=== PATIENT | female | born 1975 | race Caucasian/White ===

== ENCOUNTER 2023-07-20 23:20 | Inpatient (IN) | payer MEDICAID, OTHER ==
[~2023-07-20] VITALS: Ht 170.2 cm; Wt 101.3 kg
[2023-07-21] VITALS (32 sets, daily range): BP systolic 56–128; BP diastolic 28–75; PULSE 89–111; RESP 14–32; TEMP 97.2–99.2
[2023-07-21 03:47] LABS: CHLORIDE 94 mEq/L (98-107); INDEX HEMOLYSI 1 (1-3); INDEX ICTERIC 1 (1-4); INDEX LIPEMIC 1 (1-3); POTASSIUM 3.9 mEq/L (3.5-5.1); SODIUM 126 mEq/L (136-145)
[2023-07-21 03:55] LABS: ALANINE AMINOTRANSFERASE 34 IU/L (13-61); ALBUMIN 2.8 g/dL (3.4-5.0); ASPARTATE AMINOTRANSFERASE 28 IU/L (15-37); BILIRUBIN TOTAL 0.5 mg/dL (0.1-1.0); CALCIUM 9.2 mg/dL (8.5-10.1); CARBON DIOXIDE 22 mEq/L (21-32); GLUCOSE 134 mg/dL (70-105); NT PRO B-TYPE NATRIURETIC PEP 333 pg/mL (5-125); PROTEIN TOTAL 8.6 g/dL (6.0-8.3); TROPONIN I HIGH SENSITIVITY 6 ng/L (<54); UREA NITROGEN BLOOD 49 mg/dL (7-21)
[2023-07-21 06:58] LABS: HCG SCREEN NEGATIVE
[2023-07-21 09:18] LABS: TROPONIN I HIGH SENSITIVITY 6 ng/L (<54)
[2023-07-21 09:50] LABS: HEMATOCRIT. 36.9 % (36.0-48.0); HEMOGLOBIN. 12.5 g/dL (12.0-16.0); MEAN CORPUSCULAR HEMOGLOBIN 32.1 pg (28.0-32.0); MEAN CORPUSCULAR VOLUME 94.4 fL (81.0-99.0); MEAN PLATELET VOLUME 7.6 fl (7.4-10.4); PLATELET 402 x1000/uL (130-400); RED BLOOD CELL COUNT 3.91 mill/uL (4.2-5.4); RED CELL DISTRIBUTION WIDTH 14.1 % (11.6-14.6); WHITE BLOOD COUNT 7.9 x1000/uL (4.5-11.0)
[2023-07-21 09:51] LABS: DIFFERENTIAL COMMENT 1
[2023-07-21] MEDS ORDERED: PIPERACILLIN/TAZOBACTAM 3.375GM/50ML PREMIX IV ONE (10:00)
[2023-07-21 10:26] LABS: PLATELET ESTIMATE NORMAL
[2023-07-21] MEDS: PIPERACILLIN/TAZ 3.375G PREMIX 50 ML IV SCH ×2 (10:31→11:03)
[2023-07-21] MEDS ORDERED: ONDANSETRON HCL 4MG/2ML INJ IV PRN (10:45)
[2023-07-21] MEDS ORDERED: ACETAMINOPHEN 650MG SUPP PR PRN (10:45)
[2023-07-21] MEDS ORDERED: NALOXONE HCL 0.4MG/ML VIAL IV PRN (11:00)
[2023-07-21] MEDS: PANTOPRAZOLE SODIUM 40 MG/VIAL IV SCH (11:00)
[2023-07-21] MEDS: ENOXAPARIN 40MG/0.4ML SYR SUBCUT SCH (11:00)
[2023-07-21] MEDS: SODIUM CHLORIDE 0.9% 1,000 ML IV SCH ×2 (11:20→18:15)
[2023-07-21] MEDS ORDERED: SKIN ADHESIVE 0.7 GM EA TOP ONE (13:12)
[2023-07-21] MEDS ORDERED: BUPIVACAINE HCL/PF 0.5% (5MG/ML) 10ML ONE (13:12)
[2023-07-21] MEDS ORDERED: ALBUTEROL 6.7GM HFA INHALER ONE (13:28)
[2023-07-21] MEDS ORDERED: FENTANYL CITRATE/PF 50MCG/ML 2ML VIAL ONE ×2 (13:34→14:13)
[2023-07-21] MEDS ORDERED: METOCLOPRAMIDE HCL 10MG/2ML VIAL ONE (13:34)
[2023-07-21] MEDS ORDERED: ROCURONIUM BROMIDE 10MG/ML VIAL 5ML IV ONE ×3 (13:34→15:14)
[2023-07-21] MEDS ORDERED: CEFAZOLIN SODIUM 1000MG/VIAL ONE (13:34)
[2023-07-21] MEDS ORDERED: DEXAMETHASONE 4MG/ML 1ML VIAL ONE (13:34)
[2023-07-21] MEDS ORDERED: PROPOFOL 200MG/20ML VIAL IV ONE (13:34)
[2023-07-21] MEDS ORDERED: MIDAZOLAM HCL 2 MG/2 ML VIAL ONE (13:35)
[2023-07-21] MEDS ORDERED: HYDROMORPHONE HCL/PF 2MG/ML CPJ ONE (14:16)
[2023-07-21] MEDS ORDERED: ALBUMIN HUMAN 12.5G/250ML (5%) IV ONE (14:46)
[2023-07-21] MEDS ORDERED: STERILE WATER FOR INJECTION 10ML VIAL ONE (15:18)
[2023-07-21] MEDS ORDERED: VECURONIUM BROMIDE 10 MG/VIAL IV ONE (15:18)
[2023-07-21] MEDS ORDERED: PIPERACILLIN/TAZOBACTAM 3.375 G in DEXTROSE 5% WATER 50 ML IV SCH (16:00)
[2023-07-21] MEDS: MORPHINE SULFATE 4 MG/ML CPJ (NOT FOR IM USE) IV PRN (17:29)
[2023-07-21 17:59] LABS: BG BASE EXCESS -5.7 mmol/L (-2.0-2.0); BG CARBOXYHEMOGLOBIN 0.5 % (0.5-1.5); BG FRACTION INSPIRED OXYGEN 100; BG HCO3 ACT 25.1 mmol/L (22.0-26.0); BG METHEMOGLOBIN 0.4 % (0.0-1.5); BG OXYHEMOGLOBIN 96.1 % (94.0-97.0); BG PCO2 75.4 mmHg (35.0-45.0); BG PH 7.141 (7.350-7.450); BG PO2 115.9 mmHg (75.0-100.0); BG SAMPLE SITE RIGHT RADIAL; BG TOTAL HEMOGLOBIN 15.3 g/dL (12.0-18.0); BG VENT MODE VENT - SIMV
[2023-07-21] MEDS: PROPOFOL 10MG/ML 100ML 100 ML IV PRN ×3 (19:30→22:48)
[2023-07-21 21:05] LABS: BG BASE EXCESS -5.7 mmol/L (-2.0-2.0); BG CARBOXYHEMOGLOBIN 0.2 % (0.5-1.5); BG DEOXYHEMOGLOBIN 4.9 % (0.0-5.0); BG FRACTION INSPIRED OXYGEN 100; BG HCO3 ACT 22.9 mmol/L (22.0-26.0); BG METHEMOGLOBIN 0.4 % (0.0-1.5); BG OXYGEN SATURATION 95.1 % (92.0-98.5); BG OXYHEMOGLOBIN 94.5 % (94.0-97.0); BG PCO2 60.2 mmHg (35.0-45.0); BG PH 7.198 (7.350-7.450); BG PO2 86.8 mmHg (75.0-100.0); BG SAMPLE SITE LEFT RADIAL; BG TOTAL HEMOGLOBIN 11.8 g/dL (12.0-18.0); BG VENT MODE VENT - AC
[2023-07-21] MEDS ORDERED: FENTANYL 2500MCG/250ML PMX 250 ML IV ONE (21:30)
[2023-07-21] MEDS: PIPERACILLIN/TAZOBACTAM 3.375 G in DEXTROSE 5% WATER 50 ML IV SCH (22:48)
[2023-07-21] MEDS: FENTANYL CITRATE 2,500 MCG in SODIUM CHLORIDE 0.9% 200 ML IV PRN (22:48)
[2023-07-21] MEDS: SODIUM BICARBONATE 100 MEQ in SODIUM CHLORIDE 0.45% 1,000 ML IV SCH (22:48)
[2023-07-22] VITALS (102 sets, daily range): BP systolic 81–167; BP diastolic 37–137; PULSE 78–110; RESP 12–67; TEMP 98.7–99
[2023-07-22] MEDS: PROPOFOL 10MG/ML 100ML 100 ML IV PRN ×12 (01:06→23:36)
[2023-07-22 05:16] LABS: BASOPHILS % 0.3 % (0.0-2.0); DIFFERENTIAL COMMENT 0; EOSINOPHILS % 0.4 % (0.0-5.0); HEMATOCRIT. 28.7 % (36.0-48.0); HEMOGLOBIN. 10.1 g/dL (12.0-16.0); LYMPHOCYTES % 7.9 % (20.0-50.0); MEAN CORPUSCULAR HGB CONC 35.3 g/dL (31.0-37.0); MEAN CORPUSCULAR VOLUME 93.6 fL (81.0-99.0); MEAN PLATELET VOLUME 7.1 fl (7.4-10.4); MONOCYTES % 7.2 % (2.0-8.0); NEUTROPHILS % 84.2 % (40.0-76.0); PLATELET 385 x1000/uL (130-400); RED BLOOD CELL COUNT 3.06 mill/uL (4.2-5.4); RED CELL DISTRIBUTION WIDTH 14.2 % (11.6-14.6); WHITE BLOOD COUNT 9.9 x1000/uL (4.5-11.0)
[2023-07-22 05:28] LABS: CHLORIDE 101 mEq/L (98-107); INDEX HEMOLYSI 1 (1-3); INDEX ICTERIC 1 (1-4); INDEX LIPEMIC 1 (1-3); POTASSIUM 3.9 mEq/L (3.5-5.1); SODIUM 132 mEq/L (136-145)
[2023-07-22 05:34] LABS: ALANINE AMINOTRANSFERASE 24 IU/L (13-61); ALBUMIN 2.1 g/dL (3.4-5.0); ASPARTATE AMINOTRANSFERASE 20 IU/L (15-37); BILIRUBIN TOTAL 0.6 mg/dL (0.1-1.0); CALCIUM 6.9 mg/dL (8.5-10.1); CARBON DIOXIDE 23 mEq/L (21-32); GLUCOSE 157 mg/dL (70-105); PHOSPHORUS 5.9 mg/dL (2.5-4.9); PROTEIN TOTAL 6.2 g/dL (6.0-8.3); TRIGLYCERIDE 424 mg/dL (0-150); UREA NITROGEN BLOOD 59 mg/dL (7-21)
[2023-07-22] MEDS: PIPERACILLIN/TAZOBACTAM 3.375 G in DEXTROSE 5% WATER 50 ML IV SCH ×3 (05:44→23:36)
[2023-07-22] MEDS: NOREPINEPHRINE 8MG/250ML PMX 250 ML IV PRN ×3 (07:47→20:21)
[2023-07-22] MEDS: IPRATROPIUM/ALBUTEROL 0.5-3(2.5)MG/3ML NEB HHN SCH ×2 (08:25→13:52)
[2023-07-22] MEDS: PANTOPRAZOLE SODIUM 40 MG/VIAL IV SCH (08:56)
[2023-07-22] MEDS: ENOXAPARIN 40MG/0.4ML SYR SUBCUT SCH (08:56)
[2023-07-22] MEDS: LORAZEPAM 2MG/ML CPJ IV PRN ×3 (08:56→21:16)
[2023-07-22] MEDS ORDERED: LIDOCAINE HCL 1% 10 MG/ML 10ML VIAL ONE (09:54)
[2023-07-22 10:11] LABS: BG BASE EXCESS -2.3 mmol/L (-2.0-2.0); BG CARBOXYHEMOGLOBIN 0.3 % (0.5-1.5); BG DEOXYHEMOGLOBIN 1.5 % (0.0-5.0); BG FRACTION INSPIRED OXYGEN 100; BG HCO3 ACT 23.4 mmol/L (22.0-26.0); BG METHEMOGLOBIN 0.5 % (0.0-1.5); BG OXYGEN SATURATION 98.5 % (92.0-98.5); BG OXYHEMOGLOBIN 97.7 % (94.0-97.0); BG PCO2 43.9 mmHg (35.0-45.0); BG PH 7.345 (7.350-7.450); BG PO2 147.8 mmHg (75.0-100.0); BG SAMPLE SITE RIGHT RADIAL; BG TOTAL HEMOGLOBIN 10.9 g/dL (12.0-18.0); BG VENT MODE VENT - AC
[2023-07-22] MEDS: SODIUM BICARBONATE 100 MEQ in SODIUM CHLORIDE 0.45% 1,000 ML IV SCH (11:51)
[2023-07-22] MEDS: FENTANYL CITRATE 2,500 MCG in SODIUM CHLORIDE 0.9% 200 ML IV PRN ×2 (11:53→21:19)
[2023-07-22 13:49] LABS: BG BASE EXCESS -2.7 mmol/L (-2.0-2.0); BG CARBOXYHEMOGLOBIN 0.3 % (0.5-1.5); BG DEOXYHEMOGLOBIN 6.7 % (0.0-5.0); BG FRACTION INSPIRED OXYGEN 90; BG HCO3 ACT 23.9 mmol/L (22.0-26.0); BG METHEMOGLOBIN 0.4 % (0.0-1.5); BG OXYGEN SATURATION 93.3 % (92.0-98.5); BG OXYHEMOGLOBIN 92.6 % (94.0-97.0); BG PCO2 49.3 mmHg (35.0-45.0); BG PH 7.304 (7.350-7.450); BG PO2 73.3 mmHg (75.0-100.0); BG SAMPLE SITE RIGHT RADIAL; BG TOTAL HEMOGLOBIN 11.6 g/dL (12.0-18.0); BG VENT MODE VENT - AC
[2023-07-22 16:40] LABS: CLARITY URINE CLOUDY (CLEAR); COLOR URINE DARK YELLOW (YELLOW); GLUCOSE URINE NEGATIVE (NEGATIVE); KETONES URINE NEGATIVE (NEGATIVE); LEUKOCYTE ESTERASE URINE TRACE (NEGATIVE); NITRITE URINE NEGATIVE (NEGATIVE); OCCULT BLOOD URINE NEGATIVE (NEGATIVE); PROTEIN URINE TRACE (NEGATIVE); SPECIFIC GRAVITY URINE 1.024 (1.005-1.030)
[2023-07-22 16:44] LABS: SQUAMOUS EPITHELIAL CELL URINE 1+ /lpf (RARE/1+); YEAST URINE NONE SEEN
[2023-07-22 16:57] LABS: *AMPHETAMINES SCREEN URINE NEGATIVE (NEGATIVE); *BARBITURATES SCREEN URINE NEGATIVE (NEGATIVE); *BENZODIAZEPINES SCREEN URINE PRESUMTIVE POSITIVE (NEGATIVE); *COCAINE SCREEN URINE NEGATIVE (NEGATIVE); CANNABINOID URINE SCREEN NEGATIVE (NEGATIVE); ECSTASY MDMA SCREEN URINE CONF.TEST INDICATED (NEGATIVE); METHADONE URINE SCREEN NEGATIVE (NEGATIVE); OPIATES URINE SCREEN PRESUMTIVE POSITIVE (NEGATIVE); PHENCYCLIDINE URINE SCREEN NEGATIVE (NEGATIVE)
[2023-07-22 17:23] LABS: RBC URINE 0-2 /hpf (0-2)
[2023-07-22 17:24] LABS: BACTERIA URINE 1+
[2023-07-23] VITALS (53 sets, daily range): BP systolic 84–157; BP diastolic 27–76; PULSE 75–102; RESP 20–30; TEMP 98.9–99.1
[2023-07-23] MEDS: SODIUM CHLORIDE 0.9% 1,000 ML IV SCH ×2 (00:08→12:51)
[2023-07-23] MEDS: NOREPINEPHRINE 8MG/250ML PMX 250 ML IV PRN (00:47)
[2023-07-23] MEDS: LORAZEPAM 2MG/ML CPJ IV PRN ×3 (01:19→17:49)
[2023-07-23] MEDS: MORPHINE SULFATE 4 MG/ML CPJ (NOT FOR IM USE) IV PRN ×2 (01:19→08:52)
[2023-07-23] MEDS: PROPOFOL 10MG/ML 100ML 100 ML IV PRN ×10 (02:08→23:52)
[2023-07-23 04:53] LABS: HEMATOCRIT. 29.4 % (36.0-48.0); HEMOGLOBIN. 9.9 g/dL (12.0-16.0); MEAN CORPUSCULAR HEMOGLOBIN 31.5 pg (28.0-32.0); MEAN CORPUSCULAR HGB CONC 33.5 g/dL (31.0-37.0); MEAN CORPUSCULAR VOLUME 93.9 fL (81.0-99.0); MEAN PLATELET VOLUME 7.2 fl (7.4-10.4); PLATELET 480 x1000/uL (130-400); RED BLOOD CELL COUNT 3.13 mill/uL (4.2-5.4); RED CELL DISTRIBUTION WIDTH 14.4 % (11.6-14.6); WHITE BLOOD COUNT 17.2 x1000/uL (4.5-11.0)
[2023-07-23 05:06] LABS: POTASSIUM 3.4 mEq/L (3.5-5.1)
[2023-07-23 05:16] LABS: INDEX HEMOLYSI 2 (1-3)
[2023-07-23 05:33] LABS: FERRITIN 393 ng/mL (10-291)
[2023-07-23 05:35] LABS: ALBUMIN 1.8 g/dL (3.4-5.0); BILIRUBIN DIRECT 0.6 mg/dL (0.0-0.2); BILIRUBIN TOTAL 0.8 mg/dL (0.1-1.0); CALCIUM 6.8 mg/dL (8.5-10.1); PROTEIN TOTAL 6.4 g/dL (6.0-8.3)
[2023-07-23 05:43] LABS: HEPATITIS B SURFACE ANTIGEN NEGATIVE
[2023-07-23 05:59] LABS: FOLIC ACID (FOLATE) SERUM > 20.00 ng/mL (>5.38); VITAMIN B12 SERUM > 2000.0 pg/mL (211-911)
[2023-07-23] MEDS: PIPERACILLIN/TAZOBACTAM 3.375 G in DEXTROSE 5% WATER 50 ML IV SCH ×3 (06:22→20:53)
[2023-07-23 06:33] LABS: INR 1.2; PROTHROMBIN TIME 12.5 sec (9.6-11.0)
[2023-07-23 06:56] LABS: DIFFERENTIAL COMMENT 1
[2023-07-23] MEDS ORDERED: NOREPINEPHRINE 8 MG in DEXT 5% WATER 242 ML IV PRN (08:15)
[2023-07-23] MEDS ORDERED: NOREPINEPHRINE 8MG/250ML PMX 250 ML IV PRN (08:15)
[2023-07-23] MEDS: IPRATROPIUM/ALBUTEROL 0.5-3(2.5)MG/3ML NEB HHN SCH ×3 (08:16→20:31)
[2023-07-23] MEDS: NOREPINEPHRINE 32 MG in DEXT 5% WATER 218 ML IV PRN (08:40)
[2023-07-23] MEDS: PANTOPRAZOLE SODIUM 40 MG/VIAL IV SCH (08:50)
[2023-07-23] MEDS: ENOXAPARIN 40MG/0.4ML SYR SUBCUT SCH ×2 (08:51→20:54)
[2023-07-23 09:50] LABS: BG BASE EXCESS 1.5 mmol/L (-2.0-2.0); BG CARBOXYHEMOGLOBIN 0.3 % (0.5-1.5); BG DEOXYHEMOGLOBIN 5.8 % (0.0-5.0); BG FRACTION INSPIRED OXYGEN 70; BG HCO3 ACT 27.5 mmol/L (22.0-26.0); BG METHEMOGLOBIN 0.6 % (0.0-1.5); BG OXYGEN SATURATION 94.1 % (92.0-98.5); BG OXYHEMOGLOBIN 93.3 % (94.0-97.0); BG PCO2 49.3 mmHg (35.0-45.0); BG PH 7.364 (7.350-7.450); BG PO2 74.8 mmHg (75.0-100.0); BG SAMPLE SITE RIGHT RADIAL; BG TOTAL HEMOGLOBIN 11.6 g/dL (12.0-18.0); BG TOTAL RESPIRATORY RATE 20 b/min; BG VENT MODE VENT - AC
[2023-07-23 14:16] LABS: HEPATITIS B CORE AB IGM NEGATIVE
[2023-07-23 14:18] LABS: HEPATITIS A AB IGM NEGATIVE (NEGATIVE)
[2023-07-23 14:26] LABS: PLATELET ESTIMATE INCREASED
[2023-07-23] MEDS ORDERED: POLY17PO43 PO (14:46)
[2023-07-23] MEDS ORDERED: OMEP20CA14 PO (15:02)
[2023-07-23] MEDS ORDERED: NALT50TA5 MT (15:02)
[2023-07-23] MEDS ORDERED: CRES10 MT (15:02)
[2023-07-23] MEDS ORDERED: BUPR-315 MT (15:02)
[2023-07-23] MEDS ORDERED: SEMA0.5P (15:02)
[2023-07-23] MEDS ORDERED: CLON0.5T23 MT (15:02)
[2023-07-23] MEDS ORDERED: AMLO5TAB88 PO (15:02)
[2023-07-23] MEDS ORDERED: SEMA0.253 (15:02)
[2023-07-23] MEDS ORDERED: ESTR1PAT74 TP (15:02)
[2023-07-23] MEDS ORDERED: QUET50TA23 MT (15:02)
[2023-07-23] MEDS ORDERED: PARO40TA75 MT (15:02)
[2023-07-23] MEDS ORDERED: QUET100T34 MT (15:02)
[2023-07-23] MEDS ORDERED: VALS80TA30 MT (15:02)
[2023-07-23] MEDS ORDERED: NICO-645 TP (15:02)
[2023-07-23] MEDS: FENTANYL CITRATE 2,500 MCG in SODIUM CHLORIDE 0.9% 200 ML IV PRN ×2 (15:34→22:13)
[2023-07-24] VITALS (89 sets, daily range): BP systolic 73–176; BP diastolic 27–140; PULSE 65–113; RESP 7–26; TEMP 99.2–100.5
[2023-07-24] MEDS: IPRATROPIUM/ALBUTEROL 0.5-3(2.5)MG/3ML NEB HHN SCH ×4 (01:38→20:40)
[2023-07-24] MEDS: PROPOFOL 10MG/ML 100ML 100 ML IV PRN ×7 (02:31→21:11)
[2023-07-24] MEDS: PIPERACILLIN/TAZOBACTAM 3.375 G in DEXTROSE 5% WATER 50 ML IV SCH ×3 (05:28→21:10)
[2023-07-24] MEDS: SODIUM CHLORIDE 0.9% 1,000 ML IV SCH ×3 (05:28→18:25)
[2023-07-24 06:01] LABS: HEMATOCRIT. 25.8 % (36.0-48.0); HEMOGLOBIN. 8.7 g/dL (12.0-16.0); MEAN CORPUSCULAR HEMOGLOBIN 32.4 pg (28.0-32.0); MEAN CORPUSCULAR HGB CONC 33.8 g/dL (31.0-37.0); MEAN PLATELET VOLUME 7.2 fl (7.4-10.4); PLATELET 415 x1000/uL (130-400); RED BLOOD CELL COUNT 2.69 mill/uL (4.2-5.4); RED CELL DISTRIBUTION WIDTH 14.9 % (11.6-14.6); WHITE BLOOD COUNT 17.4 x1000/uL (4.5-11.0)
[2023-07-24 06:08] LABS: POTASSIUM 3.8 mEq/L (3.5-5.1)
[2023-07-24 06:14] LABS: CALCIUM 6.6 mg/dL (8.5-10.1); CREATININE 1.3 mg/dL (0.6-1.3)
[2023-07-24 06:54] LABS: DIFFERENTIAL COMMENT 1
[2023-07-24 08:04] LABS: BG BASE EXCESS -1.6 mmol/L (-2.0-2.0); BG CARBOXYHEMOGLOBIN 0.3 % (0.5-1.5); BG DEOXYHEMOGLOBIN 1.6 % (0.0-5.0); BG HCO3 ACT 24.1 mmol/L (22.0-26.0); BG METHEMOGLOBIN 0.3 % (0.0-1.5); BG OXYGEN SATURATION 98.4 % (92.0-98.5); BG OXYHEMOGLOBIN 97.8 % (94.0-97.0); BG PCO2 45.4 mmHg (35.0-45.0); BG PH 7.343 (7.350-7.450); BG PO2 143.1 mmHg (75.0-100.0); BG SAMPLE SITE RH; BG TOTAL HEMOGLOBIN 8.7 g/dL (12.0-18.0); BG VENT MODE VENT - AC
[2023-07-24] MEDS: PANTOPRAZOLE SODIUM 40 MG/VIAL IV SCH (08:47)
[2023-07-24] MEDS: NOREPINEPHRINE 32 MG in DEXT 5% WATER 218 ML IV PRN (08:49)
[2023-07-24] MEDS: MORPHINE SULFATE 4 MG/ML CPJ (NOT FOR IM USE) IV PRN (08:50)
[2023-07-24] MEDS: ENOXAPARIN 40MG/0.4ML SYR SUBCUT SCH ×2 (08:52→20:26)
[2023-07-24] MEDS: FENTANYL CITRATE 2,500 MCG in SODIUM CHLORIDE 0.9% 200 ML IV PRN (09:08)
[2023-07-24 10:11] LABS: PLATELET ESTIMATE SLIGHTLY INCREASED
[2023-07-24 10:12] LABS: TEAR DROP CELLS 1+
[2023-07-24] MEDS: BUDESONIDE 0.5MG/2ML NEB HHN SCH ×2 (13:50→20:40)
[2023-07-24 20:02] LABS: PREALBUMIN 9.3 mg/dL (20.0-40.0)
[2023-07-25] VITALS (112 sets, daily range): BP systolic 73–177; BP diastolic 27–146; PULSE 60–122; RESP 5–116; TEMP 98–99.8
[2023-07-25] MEDS: PROPOFOL 10MG/ML 100ML 100 ML IV PRN ×4 (00:29→08:56)
[2023-07-25] MEDS: IPRATROPIUM/ALBUTEROL 0.5-3(2.5)MG/3ML NEB HHN SCH ×7 (00:31→21:02)
[2023-07-25] MEDS: SODIUM CHLORIDE 0.9% 1,000 ML IV SCH (04:29)
[2023-07-25 05:01] LABS: HEMOGLOBIN. 8.3 g/dL (12.0-16.0); MEAN CORPUSCULAR HEMOGLOBIN 30.8 pg (28.0-32.0); MEAN CORPUSCULAR HGB CONC 32.1 g/dL (31.0-37.0); MEAN CORPUSCULAR VOLUME 95.7 fL (81.0-99.0); MEAN PLATELET VOLUME 7.1 fl (7.4-10.4); PLATELET 365 x1000/uL (130-400); RED BLOOD CELL COUNT 2.71 mill/uL (4.2-5.4); WHITE BLOOD COUNT 14.7 x1000/uL (4.5-11.0)
[2023-07-25 05:03] LABS: CHLORIDE 113 mEq/L (98-107); INDEX HEMOLYSI 2 (1-3); INDEX ICTERIC 1 (1-4); INDEX LIPEMIC 1 (1-3); POTASSIUM 3.8 mEq/L (3.5-5.1); SODIUM 143 mEq/L (136-145)
[2023-07-25 05:08] LABS: DIFFERENTIAL COMMENT 1
[2023-07-25 05:14] LABS: CALCIUM 7.2 mg/dL (8.5-10.1); CARBON DIOXIDE 25 mEq/L (21-32); CREATININE 0.9 mg/dL (0.6-1.3); GLUCOSE 105 mg/dL (70-105); TRIGLYCERIDE 560 mg/dL (0-150); UREA NITROGEN BLOOD 34 mg/dL (7-21)
[2023-07-25 05:47] LABS: PLATELET ESTIMATE NORMAL
[2023-07-25] MEDS: PIPERACILLIN/TAZOBACTAM 3.375 G in DEXTROSE 5% WATER 50 ML IV SCH ×3 (06:01→22:00)
[2023-07-25] MEDS: FENTANYL CITRATE 2,500 MCG in SODIUM CHLORIDE 0.9% 200 ML IV PRN ×2 (06:02→18:48)
[2023-07-25] MEDS: BUDESONIDE 0.5MG/2ML NEB HHN SCH ×2 (08:27→21:02)
[2023-07-25] MEDS: PANTOPRAZOLE SODIUM 40 MG/VIAL IV SCH (08:34)
[2023-07-25] MEDS: ENOXAPARIN 40MG/0.4ML SYR SUBCUT SCH ×2 (08:34→21:01)
[2023-07-25 09:50] LABS: BG BASE EXCESS -1.1 mmol/L (-2.0-2.0); BG CARBOXYHEMOGLOBIN 0.3 % (0.5-1.5); BG DEOXYHEMOGLOBIN 6.4 % (0.0-5.0); BG FRACTION INSPIRED OXYGEN 60; BG HCO3 ACT 26.8 mmol/L (22.0-26.0); BG METHEMOGLOBIN 0.1 % (0.0-1.5); BG OXYGEN SATURATION 93.6 % (92.0-98.5); BG OXYHEMOGLOBIN 93.2 % (94.0-97.0); BG PCO2 63.3 mmHg (35.0-45.0); BG PH 7.244 (7.350-7.450); BG PO2 78.1 mmHg (75.0-100.0); BG SAMPLE SITE RIGHT RADIAL; BG TOTAL HEMOGLOBIN 9.1 g/dL (12.0-18.0); BG VENT MODE VENT - AC
[2023-07-25] MEDS ORDERED: METHYLPREDNISOLONE SOD SUCC 40MG VIAL IV SCH (10:45)
[2023-07-25] MEDS: MIDAZOLAM HCL 100 MG in SODIUM CHLORIDE 0.9% 80 ML IV PRN ×2 (12:08→18:48)
[2023-07-25] MEDS: METHYLPREDNISOLONE SOD SUCC 40MG VIAL IV SCH ×2 (12:08→21:00)
[2023-07-25] MEDS ORDERED: HALOPERIDOL LACTATE 5MG/ML VIAL IM NR (12:30)
[2023-07-25 12:41] LABS: PREALBUMIN 7.4 mg/dL (20.0-40.0)
[2023-07-25] MEDS ORDERED: SODIUM CHLORIDE 0.9% 1,000 ML IV SCH ×2 (13:00→21:00)
[2023-07-25] MEDS: TOTAL PARENTERAL NUTRITION 1,680 ML IV SCH (21:06)
[2023-07-26] VITALS (110 sets, daily range): BP systolic 73–218; BP diastolic 24–149; PULSE 54–131; RESP 12–35; TEMP 97.7–100
[2023-07-26] MEDS: IPRATROPIUM/ALBUTEROL 0.5-3(2.5)MG/3ML NEB HHN SCH ×6 (00:37→20:52)
[2023-07-26] MEDS: FENTANYL CITRATE 2,500 MCG in SODIUM CHLORIDE 0.9% 200 ML IV PRN ×3 (02:38→19:40)
[2023-07-26] MEDS: MIDAZOLAM HCL 100 MG in SODIUM CHLORIDE 0.9% 80 ML IV PRN ×3 (03:52→20:28)
[2023-07-26] MEDS: LORAZEPAM 2MG/ML CPJ IV PRN ×3 (03:53→23:35)
[2023-07-26] MEDS: METHYLPREDNISOLONE SOD SUCC 40MG VIAL IV SCH ×2 (04:00→11:53)
[2023-07-26] MEDS: MORPHINE SULFATE 4 MG/ML CPJ (NOT FOR IM USE) IV PRN (04:04)
[2023-07-26 04:57] LABS: HEMATOCRIT. 25.9 % (36.0-48.0); HEMOGLOBIN. 8.3 g/dL (12.0-16.0); MEAN CORPUSCULAR HEMOGLOBIN 31.3 pg (28.0-32.0); MEAN CORPUSCULAR HGB CONC 32.2 g/dL (31.0-37.0); MEAN CORPUSCULAR VOLUME 97.4 fL (81.0-99.0); MEAN PLATELET VOLUME 7.4 fl (7.4-10.4); PLATELET 395 x1000/uL (130-400); RED BLOOD CELL COUNT 2.65 mill/uL (4.2-5.4); WHITE BLOOD COUNT 16.5 x1000/uL (4.5-11.0)
[2023-07-26 05:09] LABS: CHLORIDE 116 mEq/L (98-107); INDEX HEMOLYSI 1 (1-3); INDEX ICTERIC 1 (1-4); INDEX LIPEMIC 1 (1-3); INR 1.1; PARTIAL THROMBOPLASTIN TIME 29.9 sec (23.4-31.0); POTASSIUM 4.7 mEq/L (3.5-5.1); SODIUM 144 mEq/L (136-145)
[2023-07-26 05:15] LABS: ALANINE AMINOTRANSFERASE 20 IU/L (13-61); ALBUMIN 1.8 g/dL (3.4-5.0); ASPARTATE AMINOTRANSFERASE 21 IU/L (15-37); BILIRUBIN TOTAL 0.7 mg/dL (0.1-1.0); CALCIUM 7.7 mg/dL (8.5-10.1); CARBON DIOXIDE 28 mEq/L (21-32); CHOLESTEROL 120 mg/dL (<200); CREATININE 0.6 mg/dL (0.6-1.3); GLUCOSE 201 mg/dL (70-105); PROTEIN TOTAL 7.4 g/dL (6.0-8.3); TRIGLYCERIDE 371 mg/dL (0-150); UREA NITROGEN BLOOD 24 mg/dL (7-21)
[2023-07-26 05:20] LABS: DIFFERENTIAL COMMENT 1
[2023-07-26] MEDS: BLOOD SUGAR DIAGNOSTIC STRIP TEST SCH ×5 (06:00→23:32)
[2023-07-26] MEDS: PIPERACILLIN/TAZOBACTAM 3.375 G in DEXTROSE 5% WATER 50 ML IV SCH ×2 (06:25→14:14)
[2023-07-26 08:04] LABS: BG BASE EXCESS 2.1 mmol/L (-2.0-2.0); BG CARBOXYHEMOGLOBIN 0.3 % (0.5-1.5); BG DEOXYHEMOGLOBIN 1.4 % (0.0-5.0); BG HCO3 ACT 26.9 mmol/L (22.0-26.0); BG METHEMOGLOBIN 0.1 % (0.0-1.5); BG OXYGEN SATURATION 98.6 % (92.0-98.5); BG OXYHEMOGLOBIN 98.2 % (94.0-97.0); BG PCO2 42.6 mmHg (35.0-45.0); BG PH 7.418 (7.350-7.450); BG PO2 139.7 mmHg (75.0-100.0); BG SAMPLE SITE RIGHT RADIAL; BG TOTAL HEMOGLOBIN 9.9 g/dL (12.0-18.0); BG VENT MODE VENT - AC
[2023-07-26] MEDS: BUDESONIDE 0.5MG/2ML NEB HHN SCH ×2 (08:49→20:52)
[2023-07-26] MEDS: PANTOPRAZOLE SODIUM 40 MG/VIAL IV SCH (08:54)
[2023-07-26] MEDS: ENOXAPARIN 40MG/0.4ML SYR SUBCUT SCH ×2 (08:55→20:27)
[2023-07-26] MEDS ORDERED: SODIUM CHLORIDE 0.45% 1,000 ML IV SCH (11:15)
[2023-07-26] MEDS ORDERED: DEXTROSE 50% WATER 50ML SYRINGE IV PRN (11:30)
[2023-07-26] MEDS: INSULIN LISPRO 100 UNITS/ML SUBCUT SCH ×3 (11:55→23:38)
[2023-07-26 12:28] LABS: PREALBUMIN 8.9 mg/dL (20.0-40.0)
[2023-07-26 13:54] LABS: PLATELET ESTIMATE NORMAL
[2023-07-26] MEDS: HALOPERIDOL LACTATE 5MG/ML VIAL IM PRN ×2 (14:14→22:47)
[2023-07-26] MEDS: ACETYLCYSTEINE 100MG/ML 10% VIAL 4ML INH SCH ×2 (16:25→20:52)
[2023-07-26] MEDS ORDERED: METHYLPREDNISOLONE SOD SUCC 40MG VIAL IV SCH (20:00)
[2023-07-26] MEDS ORDERED: METHYLPREDNISOLONE SOD SUCC 40MG/ML (ACT-O-VIAL) IV SCH (20:20)
[2023-07-26] MEDS: FAT EMULSIONS 250 ML IV SCH (20:26)
[2023-07-26] MEDS: TOTAL PARENTERAL NUTRITION 1,680 ML IV SCH (20:30)
[2023-07-26] MEDS: METHYLPREDNISOLONE SOD SUCC 40MG/ML (ACT-O-VIAL) IV SCH (20:33)
[2023-07-27] VITALS (98 sets, daily range): BP systolic 60–168; BP diastolic 23–102; PULSE 48–131; RESP 6–41; TEMP 97–99.2
[2023-07-27] MEDS: IPRATROPIUM/ALBUTEROL 0.5-3(2.5)MG/3ML NEB HHN SCH (00:35)
[2023-07-27] MEDS ORDERED: FENTANYL 2500MCG/250ML PMX 250 ML IV ONE (02:45)
[2023-07-27] MEDS: METHYLPREDNISOLONE SOD SUCC 40MG/ML (ACT-O-VIAL) IV SCH ×2 (03:33→11:46)
[2023-07-27] MEDS: IPRATROPIUM/ALBUTEROL 0.5-3(2.5)MG/3ML NEB HHN PRN ×3 (04:16→16:00)
[2023-07-27] MEDS: LORAZEPAM 2MG/ML CPJ IV PRN (04:56)
[2023-07-27] MEDS: FENTANYL CITRATE 2,500 MCG in SODIUM CHLORIDE 0.9% 200 ML IV PRN ×2 (05:16→15:08)
[2023-07-27 05:54] LABS: HEMATOCRIT. 24.3 % (36.0-48.0); HEMOGLOBIN. 7.8 g/dL (12.0-16.0); MEAN CORPUSCULAR HEMOGLOBIN 31.1 pg (28.0-32.0); MEAN CORPUSCULAR HGB CONC 31.9 g/dL (31.0-37.0); MEAN CORPUSCULAR VOLUME 97.6 fL (81.0-99.0); MEAN PLATELET VOLUME 7.6 fl (7.4-10.4); PLATELET 342 x1000/uL (130-400); RED BLOOD CELL COUNT 2.49 mill/uL (4.2-5.4); RED CELL DISTRIBUTION WIDTH 14.9 % (11.6-14.6); WHITE BLOOD COUNT 14.8 x1000/uL (4.5-11.0)
[2023-07-27 05:56] LABS: CHLORIDE 114 mEq/L (98-107); INDEX HEMOLYSI 1 (1-3); INDEX ICTERIC 1 (1-4); INDEX LIPEMIC 1 (1-3); POTASSIUM 4.5 mEq/L (3.5-5.1); SODIUM 144 mEq/L (136-145)
[2023-07-27] MEDS: BLOOD SUGAR DIAGNOSTIC STRIP TEST SCH ×4 (06:00→23:45)
[2023-07-27 06:15] LABS: CALCIUM 8.4 mg/dL (8.5-10.1); CARBON DIOXIDE 27 mEq/L (21-32); CREATININE 0.6 mg/dL (0.6-1.3); GLUCOSE 202 mg/dL (70-105); PHOSPHORUS 2.5 mg/dL (2.5-4.9); UREA NITROGEN BLOOD 28 mg/dL (7-21)
[2023-07-27 06:18] LABS: DIFFERENTIAL COMMENT 1
[2023-07-27] MEDS: INSULIN LISPRO 100 UNITS/ML SUBCUT SCH ×4 (06:45→23:50)
[2023-07-27] MEDS: HALOPERIDOL LACTATE 5MG/ML VIAL IM PRN ×3 (08:11→23:25)
[2023-07-27] MEDS: ACETYLCYSTEINE 100MG/ML 10% VIAL 4ML INH SCH ×2 (08:46→15:59)
[2023-07-27] MEDS: BUDESONIDE 0.5MG/2ML NEB HHN SCH (08:46)
[2023-07-27 08:48] LABS: BG CARBOXYHEMOGLOBIN 0.3 % (0.5-1.5); BG DEOXYHEMOGLOBIN 1.8 % (0.0-5.0); BG FRACTION INSPIRED OXYGEN 50; BG HCO3 ACT 26.7 mmol/L (22.0-26.0); BG OXYGEN SATURATION 98.2 % (92.0-98.5); BG OXYHEMOGLOBIN 97.9 % (94.0-97.0); BG PCO2 42.3 mmHg (35.0-45.0); BG PH 7.418 (7.350-7.450); BG PO2 122.2 mmHg (75.0-100.0); BG SAMPLE SITE RIGHT RADIAL; BG TOTAL HEMOGLOBIN 8.4 g/dL (12.0-18.0); BG VENT MODE VENT - AC
[2023-07-27] MEDS: PANTOPRAZOLE SODIUM 40 MG/VIAL IV SCH (08:59)
[2023-07-27] MEDS: ENOXAPARIN 40MG/0.4ML SYR SUBCUT SCH ×2 (09:00→21:11)
[2023-07-27] MEDS: SODIUM CHLORIDE 0.45% 1,000 ML IV SCH (09:03)
[2023-07-27] MEDS: MIDAZOLAM HCL 100 MG in SODIUM CHLORIDE 0.9% 80 ML IV PRN (10:16)
[2023-07-27] MEDS: LORAZEPAM 2MG/ML CPJ IM PRN ×2 (11:39→17:26)
[2023-07-27 12:46] LABS: PLATELET ESTIMATE NORMAL
[2023-07-27 12:48] LABS: ANISOCYTOSIS 1+
[2023-07-27] MEDS: PIPERACILLIN/TAZOBACTAM 3.375 G in DEXTROSE 5% WATER 50 ML IV SCH ×2 (15:04→21:30)
[2023-07-27] MEDS: TOTAL PARENTERAL NUTRITION 1,680 ML IV SCH (21:14)
[2023-07-28] VITALS (103 sets, daily range): BP systolic 121–183; BP diastolic 61–122; PULSE 49–103; RESP 21–37; TEMP 98–102.7
[2023-07-28] MEDS: IPRATROPIUM/ALBUTEROL 0.5-3(2.5)MG/3ML NEB HHN PRN ×3 (00:39→15:40)
[2023-07-28] MEDS: ACETYLCYSTEINE 100MG/ML 10% VIAL 4ML INH SCH ×3 (00:39→15:40)
[2023-07-28] MEDS: MIDAZOLAM HCL 100 MG in SODIUM CHLORIDE 0.9% 80 ML IV PRN (01:08)
[2023-07-28] MEDS: LORAZEPAM 2MG/ML CPJ IM PRN (01:14)
[2023-07-28] MEDS: FENTANYL CITRATE 2,500 MCG in SODIUM CHLORIDE 0.9% 200 ML IV PRN ×3 (01:28→23:23)
[2023-07-28] MEDS: BLOOD SUGAR DIAGNOSTIC STRIP TEST SCH ×3 (05:03→18:00)
[2023-07-28] MEDS: METHYLPREDNISOLONE SOD SUCC 40MG/ML (ACT-O-VIAL) IV SCH ×3 (05:08→20:25)
[2023-07-28] MEDS: PIPERACILLIN/TAZOBACTAM 3.375 G in DEXTROSE 5% WATER 50 ML IV SCH ×3 (05:14→23:21)
[2023-07-28] MEDS: INSULIN LISPRO 100 UNITS/ML SUBCUT SCH ×3 (05:16→18:44)
[2023-07-28 05:51] LABS: BASOPHILS % 0.2 % (0.0-2.0); DIFFERENTIAL COMMENT 0; EOSINOPHILS % 0.4 % (0.0-5.0); HEMATOCRIT. 21.3 % (36.0-48.0); LYMPHOCYTES % 18.1 % (20.0-50.0); MEAN CORPUSCULAR HEMOGLOBIN 30.6 pg (28.0-32.0); MEAN CORPUSCULAR HGB CONC 31.9 g/dL (31.0-37.0); MEAN CORPUSCULAR VOLUME 95.7 fL (81.0-99.0); MEAN PLATELET VOLUME 7.5 fl (7.4-10.4); MONOCYTES % 5.4 % (2.0-8.0); NEUTROPHILS % 75.9 % (40.0-76.0); PLATELET 343 x1000/uL (130-400); RED BLOOD CELL COUNT 2.22 mill/uL (4.2-5.4); RED CELL DISTRIBUTION WIDTH 14.4 % (11.6-14.6); WHITE BLOOD COUNT 10.8 x1000/uL (4.5-11.0)
[2023-07-28 06:05] LABS: CHLORIDE 117 mEq/L (98-107); INDEX HEMOLYSI 1 (1-3); INDEX ICTERIC 1 (1-4); INDEX LIPEMIC 1 (1-3); POTASSIUM 4.1 mEq/L (3.5-5.1); SODIUM 143 mEq/L (136-145)
[2023-07-28 06:15] LABS: CALCIUM 8.3 mg/dL (8.5-10.1); CARBON DIOXIDE 27 mEq/L (21-32); CREATININE 0.6 mg/dL (0.6-1.3); GLUCOSE 174 mg/dL (70-105); PHOSPHORUS 1.7 mg/dL (2.5-4.9); UREA NITROGEN BLOOD 28 mg/dL (7-21)
[2023-07-28 06:27] LABS: HEMOGLOBIN. 6.8 g/dL (12.0-16.0)
[2023-07-28 08:10] LABS: BG BASE EXCESS 2.9 mmol/L (-2.0-2.0); BG CARBOXYHEMOGLOBIN 0.4 % (0.5-1.5); BG DEOXYHEMOGLOBIN 1.8 % (0.0-5.0); BG METHEMOGLOBIN 0.3 % (0.0-1.5); BG OXYGEN SATURATION 98.2 % (92.0-98.5); BG OXYHEMOGLOBIN 97.5 % (94.0-97.0); BG PCO2 38.8 mmHg (35.0-45.0); BG PO2 107.1 mmHg (75.0-100.0); BG SAMPLE SITE RIGHT RADIAL; BG TOTAL HEMOGLOBIN 6.9 g/dL (12.0-18.0); BG VENT MODE VENT - AC
[2023-07-28] MEDS: ENOXAPARIN 40MG/0.4ML SYR SUBCUT SCH ×2 (08:47→20:25)
[2023-07-28] MEDS: PANTOPRAZOLE SODIUM 40 MG/VIAL IV SCH (09:31)
[2023-07-28] MEDS: SODIUM CHLORIDE 0.45% 1,000 ML IV SCH (09:32)
[2023-07-28] MEDS: DEXMEDETOMIDINE 400 MCG/100 ML 100 ML IV PRN ×4 (10:43→22:36)
[2023-07-28] MEDS ORDERED: DIATR MEGLU/DIATRIZOATE SOLN 30ML PO NR (11:00)
[2023-07-28] MEDS ORDERED: POTASSIUM PHOS,M-BASIC-D-BASIC 20 MMOL in DEXT 5% WATER 243.3333 ML IV NR (12:30)
[2023-07-28] MEDS ORDERED: TOTAL PARENTERAL NUTRITION 1,680 ML IV SCH (21:00)
[2023-07-28 21:25] LABS: HEMOGLOBIN 7.8 g/dL (12.0-16.0)
[2023-07-28 21:39] LABS: INR 1.3
[2023-07-29] VITALS (103 sets, daily range): BP systolic 128–210; BP diastolic 50–127; PULSE 54–129; RESP 14–64; TEMP 97.8–100.1
[2023-07-29] MEDS: BLOOD SUGAR DIAGNOSTIC STRIP TEST SCH ×5 (00:20→23:31)
[2023-07-29] MEDS: INSULIN LISPRO 100 UNITS/ML SUBCUT SCH ×5 (00:30→23:31)
[2023-07-29] MEDS: IPRATROPIUM/ALBUTEROL 0.5-3(2.5)MG/3ML NEB HHN PRN ×4 (00:35→21:04)
[2023-07-29] MEDS: ACETYLCYSTEINE 100MG/ML 10% VIAL 4ML INH SCH ×4 (00:35→21:03)
[2023-07-29] MEDS: LORAZEPAM 2MG/ML CPJ IM PRN ×5 (01:01→21:36)
[2023-07-29] MEDS: DEXMEDETOMIDINE 400 MCG/100 ML 100 ML IV PRN ×2 (03:36→07:19)
[2023-07-29] MEDS: METHYLPREDNISOLONE SOD SUCC 40MG/ML (ACT-O-VIAL) IV SCH (03:44)
[2023-07-29] MEDS: PIPERACILLIN/TAZOBACTAM 3.375 G in DEXTROSE 5% WATER 50 ML IV SCH ×3 (05:26→21:57)
[2023-07-29 05:45] LABS: CHLORIDE 111 mEq/L (98-107); INDEX HEMOLYSI 1 (1-3); INDEX ICTERIC 1 (1-4); INDEX LIPEMIC 1 (1-3); POTASSIUM 4.1 mEq/L (3.5-5.1); SODIUM 139 mEq/L (136-145)
[2023-07-29 05:53] LABS: CALCIUM 8.2 mg/dL (8.5-10.1); CARBON DIOXIDE 27 mEq/L (21-32); CREATININE 0.6 mg/dL (0.6-1.3); GLUCOSE 198 mg/dL (70-105); PHOSPHORUS 4.1 mg/dL (2.5-4.9); UREA NITROGEN BLOOD 25 mg/dL (7-21)
[2023-07-29 06:01] LABS: BASOPHILS % 0.2 % (0.0-2.0); EOSINOPHILS % 0.1 % (0.0-5.0); HEMATOCRIT. 24.7 % (36.0-48.0); HEMOGLOBIN. 8.1 g/dL (12.0-16.0); LYMPHOCYTES % 15.2 % (20.0-50.0); MEAN CORPUSCULAR HEMOGLOBIN 30.9 pg (28.0-32.0); MEAN CORPUSCULAR HGB CONC 32.6 g/dL (31.0-37.0); MEAN CORPUSCULAR VOLUME 94.6 fL (81.0-99.0); NEUTROPHILS % 79.5 % (40.0-76.0); PLATELET 323 x1000/uL (130-400); RED BLOOD CELL COUNT 2.61 mill/uL (4.2-5.4); RED CELL DISTRIBUTION WIDTH 14.9 % (11.6-14.6); WHITE BLOOD COUNT 12.4 x1000/uL (4.5-11.0)
[2023-07-29 07:53] LABS: BG BASE EXCESS 0.8 mmol/L (-2.0-2.0); BG CARBOXYHEMOGLOBIN 0.1 % (0.5-1.5); BG DEOXYHEMOGLOBIN 5.4 % (0.0-5.0); BG HCO3 ACT 24.9 mmol/L (22.0-26.0); BG METHEMOGLOBIN 0.2 % (0.0-1.5); BG OXYGEN SATURATION 94.6 % (92.0-98.5); BG OXYHEMOGLOBIN 94.3 % (94.0-97.0); BG PCO2 37.4 mmHg (35.0-45.0); BG PH 7.441 (7.350-7.450); BG PO2 70.3 mmHg (75.0-100.0); BG SAMPLE SITE RIGHT RADIAL; BG VENT MODE VENT - AC
[2023-07-29] MEDS: PANTOPRAZOLE SODIUM 40 MG/VIAL IV SCH (08:45)
[2023-07-29] MEDS: ENOXAPARIN 40MG/0.4ML SYR SUBCUT SCH ×2 (08:46→21:06)
[2023-07-29] MEDS ORDERED: BLOOD SUGAR DIAGNOSTIC STRIP TEST SCH (09:00)
[2023-07-29] MEDS: FENTANYL CITRATE 2,500 MCG in SODIUM CHLORIDE 0.9% 200 ML IV PRN (14:15)
[2023-07-29] MEDS: HALOPERIDOL LACTATE 5MG/ML VIAL IM PRN (16:26)
[2023-07-29] MEDS ORDERED: TOTAL PARENTERAL NUTRITION 1,680 ML IV SCH (21:00)
[2023-07-29] MEDS ORDERED: METHYLPREDNISOLONE SOD SUCC 40MG/ML (ACT-O-VIAL) IV SCH (21:00)
[2023-07-29] MEDS ORDERED: HYDRALAZINE 20MG/ML VIAL IV PRN (21:30)
[2023-07-29] MEDS: FAT EMULSIONS 250 ML IV SCH (21:58)
[2023-07-30] VITALS (89 sets, daily range): BP systolic 125–211; BP diastolic 53–137; PULSE 60–115; RESP 11–43; TEMP 97.8–98.9
[2023-07-30] MEDS: FENTANYL CITRATE 2,500 MCG in SODIUM CHLORIDE 0.9% 200 ML IV PRN ×2 (02:07→17:18)
[2023-07-30] MEDS: LORAZEPAM 2MG/ML CPJ IM PRN (04:42)
[2023-07-30] MEDS: PIPERACILLIN/TAZOBACTAM 3.375 G in DEXTROSE 5% WATER 50 ML IV SCH ×3 (06:05→21:57)
[2023-07-30] MEDS: BLOOD SUGAR DIAGNOSTIC STRIP TEST SCH ×3 (06:06→18:00)
[2023-07-30] MEDS: INSULIN LISPRO 100 UNITS/ML SUBCUT SCH ×3 (06:06→18:49)
[2023-07-30 08:06] LABS: BG BASE EXCESS 3.7 mmol/L (-2.0-2.0); BG CARBOXYHEMOGLOBIN 0.1 % (0.5-1.5); BG DEOXYHEMOGLOBIN 1.4 % (0.0-5.0); BG HCO3 ACT 29.6 mmol/L (22.0-26.0); BG METHEMOGLOBIN 0.3 % (0.0-1.5); BG OXYGEN SATURATION 98.6 % (92.0-98.5); BG OXYHEMOGLOBIN 98.2 % (94.0-97.0); BG PCO2 52.3 mmHg (35.0-45.0); BG PO2 165.6 mmHg (75.0-100.0); BG SAMPLE SITE RIGHT RADIAL; BG TOTAL HEMOGLOBIN 8.6 g/dL (12.0-18.0); BG VENT MODE VENT- PRVC
[2023-07-30] MEDS: ACETYLCYSTEINE 100MG/ML 10% VIAL 4ML INH SCH ×2 (08:14→15:51)
[2023-07-30] MEDS: IPRATROPIUM/ALBUTEROL 0.5-3(2.5)MG/3ML NEB HHN PRN ×2 (08:14→15:51)
[2023-07-30] MEDS ORDERED: MIDAZOLAM 100MG/100ML PMX 100 ML IV PRN (09:30)
[2023-07-30] MEDS: METHYLPREDNISOLONE SOD SUCC 40MG/ML (ACT-O-VIAL) IV SCH (11:45)
[2023-07-30] MEDS: PANTOPRAZOLE SODIUM 40 MG/VIAL IV SCH (11:45)
[2023-07-30] MEDS: ENOXAPARIN 40MG/0.4ML SYR SUBCUT SCH ×2 (11:46→21:57)
[2023-07-30] MEDS: MIDAZOLAM HCL 100 MG in SODIUM CHLORIDE 0.9% 80 ML IV PRN (11:47)
[2023-07-30 12:50] LABS: BASOPHILS % 0.4 % (0.0-2.0); EOSINOPHILS % 0.9 % (0.0-5.0); HEMATOCRIT. 24.7 % (36.0-48.0); HEMOGLOBIN. 7.9 g/dL (12.0-16.0); LYMPHOCYTES % 8.5 % (20.0-50.0); MEAN CORPUSCULAR HEMOGLOBIN 30.4 pg (28.0-32.0); MEAN CORPUSCULAR HGB CONC 31.9 g/dL (31.0-37.0); MEAN CORPUSCULAR VOLUME 95.2 fL (81.0-99.0); MONOCYTES % 3.3 % (2.0-8.0); NEUTROPHILS % 86.9 % (40.0-76.0); PLATELET 343 x1000/uL (130-400); RED BLOOD CELL COUNT 2.59 mill/uL (4.2-5.4); RED CELL DISTRIBUTION WIDTH 15.1 % (11.6-14.6); WHITE BLOOD COUNT 12.6 x1000/uL (4.5-11.0)
[2023-07-30 13:12] LABS: INR 1.3; PROTHROMBIN TIME 13.5 sec (9.6-11.0)
[2023-07-30 13:17] LABS: ALBUMIN 2.2 g/dL (3.4-5.0)
[2023-07-30 13:25] LABS: PHOSPHORUS 3.5 mg/dL (2.5-4.9); PREALBUMIN 28.1 mg/dL (20.0-40.0)
[2023-07-30] MEDS ORDERED: TOTAL PARENTERAL NUTRITION 1,680 ML IV SCH ×2 (13:30→21:00)
[2023-07-31] VITALS (99 sets, daily range): BP systolic 107–170; BP diastolic 41–96; PULSE 63–118; RESP 11–36; TEMP 97.5–98.8
[2023-07-31] MEDS: IPRATROPIUM/ALBUTEROL 0.5-3(2.5)MG/3ML NEB HHN PRN ×2 (00:44→08:46)
[2023-07-31] MEDS: ACETYLCYSTEINE 100MG/ML 10% VIAL 4ML INH SCH ×3 (00:45→16:31)
[2023-07-31] MEDS: MIDAZOLAM HCL 100 MG in SODIUM CHLORIDE 0.9% 80 ML IV PRN ×2 (04:03→21:21)
[2023-07-31 05:37] LABS: BASOPHILS % 0.1 % (0.0-2.0); EOSINOPHILS % 0.5 % (0.0-5.0); HEMATOCRIT. 25.6 % (36.0-48.0); HEMOGLOBIN. 8.2 g/dL (12.0-16.0); LYMPHOCYTES % 10.2 % (20.0-50.0); MEAN CORPUSCULAR HEMOGLOBIN 30.5 pg (28.0-32.0); MEAN CORPUSCULAR HGB CONC 32.1 g/dL (31.0-37.0); MEAN PLATELET VOLUME 8.1 fl (7.4-10.4); MONOCYTES % 3.7 % (2.0-8.0); NEUTROPHILS % 85.5 % (40.0-76.0); PLATELET 399 x1000/uL (130-400); WHITE BLOOD COUNT 13.1 x1000/uL (4.5-11.0)
[2023-07-31] MEDS: INSULIN LISPRO 100 UNITS/ML SUBCUT SCH ×4 (05:47→18:54)
[2023-07-31] MEDS: PIPERACILLIN/TAZOBACTAM 3.375 G in DEXTROSE 5% WATER 50 ML IV SCH ×3 (05:47→21:06)
[2023-07-31] MEDS: BLOOD SUGAR DIAGNOSTIC STRIP TEST SCH ×4 (05:47→18:00)
[2023-07-31 05:53] LABS: CHLORIDE 107 mEq/L (98-107); INDEX HEMOLYSI 1 (1-3); INDEX ICTERIC 1 (1-4); INDEX LIPEMIC 1 (1-3); POTASSIUM 3.5 mEq/L (3.5-5.1); SODIUM 141 mEq/L (136-145)
[2023-07-31 05:59] LABS: CALCIUM 8.8 mg/dL (8.5-10.1); CARBON DIOXIDE 30 mEq/L (21-32); CREATININE 0.5 mg/dL (0.6-1.3); GLUCOSE 153 mg/dL (70-105); PHOSPHORUS 3.8 mg/dL (2.5-4.9); TRIGLYCERIDE 308 mg/dL (0-150); UREA NITROGEN BLOOD 17 mg/dL (7-21)
[2023-07-31 08:15] LABS: BG BASE EXCESS 6.3 mmol/L (-2.0-2.0); BG CARBOXYHEMOGLOBIN 0.3 % (0.5-1.5); BG DEOXYHEMOGLOBIN 1.3 % (0.0-5.0); BG FRACTION INSPIRED OXYGEN 60; BG HCO3 ACT 31.1 mmol/L (22.0-26.0); BG METHEMOGLOBIN 0.1 % (0.0-1.5); BG OXYGEN SATURATION 98.7 % (92.0-98.5); BG OXYHEMOGLOBIN 98.3 % (94.0-97.0); BG PCO2 47.1 mmHg (35.0-45.0); BG PH 7.438 (7.350-7.450); BG PO2 145.7 mmHg (75.0-100.0); BG SAMPLE SITE RIGHT RADIAL; BG TOTAL HEMOGLOBIN 7.8 g/dL (12.0-18.0); BG VENT MODE VENT - AC/PRVC
[2023-07-31] MEDS: PANTOPRAZOLE SODIUM 40 MG/VIAL IV SCH (10:05)
[2023-07-31] MEDS: ENOXAPARIN 40MG/0.4ML SYR SUBCUT SCH (10:09)
[2023-07-31] MEDS ORDERED: LIDOCAINE HCL 1% 10 MG/ML 10ML VIAL ONE (10:35)
[2023-07-31] MEDS ORDERED: FUROSEMIDE 20MG/2ML VIAL IVP SCH (11:00)
[2023-07-31] MEDS: PAROXETINE HCL 10MG TABLET PO SCH (12:51)
[2023-07-31] MEDS: BUPROPION HCL 150MG TABLET XL 24HR PO SCH (12:51)
[2023-07-31] MEDS: FENTANYL CITRATE 2,500 MCG in SODIUM CHLORIDE 0.9% 200 ML IV PRN (17:05)
[2023-07-31] MEDS: QUETIAPINE FUMARATE 50MG TABLET PO SCH (20:48)
[2023-08-01] VITALS (52 sets, daily range): BP systolic 92–155; BP diastolic 47–92; PULSE 49–83; RESP 13–34; TEMP 97.7–100.4
[2023-08-01 05:51] LABS: BASOPHILS % 0.4 % (0.0-2.0); DIFFERENTIAL COMMENT 0; EOSINOPHILS % 0.9 % (0.0-5.0); MEAN CORPUSCULAR HEMOGLOBIN 31.2 pg (28.0-32.0); MEAN CORPUSCULAR HGB CONC 33.2 g/dL (31.0-37.0); MEAN CORPUSCULAR VOLUME 93.9 fL (81.0-99.0); MEAN PLATELET VOLUME 8.2 fl (7.4-10.4); MONOCYTES % 4.2 % (2.0-8.0); NEUTROPHILS % 81.5 % (40.0-76.0); PLATELET 344 x1000/uL (130-400); RED BLOOD CELL COUNT 2.22 mill/uL (4.2-5.4); RED CELL DISTRIBUTION WIDTH 14.7 % (11.6-14.6); WHITE BLOOD COUNT 7.7 x1000/uL (4.5-11.0)
[2023-08-01 05:57] LABS: CALCIUM 8.3 mg/dL (8.5-10.1); CARBON DIOXIDE 33 mEq/L (21-32); CHLORIDE 106 mEq/L (98-107); INDEX HEMOLYSI 1 (1-3); INDEX ICTERIC 1 (1-4); INDEX LIPEMIC 1 (1-3); POTASSIUM 3.1 mEq/L (3.5-5.1); SODIUM 140 mEq/L (136-145); UREA NITROGEN BLOOD 16 mg/dL (7-21)
[2023-08-01] MEDS: INSULIN LISPRO 100 UNITS/ML SUBCUT SCH ×4 (06:00→18:00)
[2023-08-01] MEDS: BLOOD SUGAR DIAGNOSTIC STRIP TEST SCH ×3 (06:00→18:00)
[2023-08-01 06:01] LABS: CREATININE 0.6 mg/dL (0.6-1.3); GLUCOSE 137 mg/dL (70-105); PHOSPHORUS 3.4 mg/dL (2.5-4.9)
[2023-08-01] MEDS: PIPERACILLIN/TAZOBACTAM 3.375 G in DEXTROSE 5% WATER 50 ML IV SCH ×3 (06:13→21:24)
[2023-08-01 06:16] LABS: HEMATOCRIT. 20.8 % (36.0-48.0); HEMOGLOBIN. 6.9 g/dL (12.0-16.0)
[2023-08-01 08:14] LABS: BG BASE EXCESS -0.4 mmol/L (-2.0-2.0); BG CARBOXYHEMOGLOBIN 0.3 % (0.5-1.5); BG DEOXYHEMOGLOBIN 1.5 % (0.0-5.0); BG FRACTION INSPIRED OXYGEN 50; BG METHEMOGLOBIN 0.5 % (0.0-1.5); BG OXYGEN SATURATION 98.5 % (92.0-98.5); BG OXYHEMOGLOBIN 97.7 % (94.0-97.0); BG PCO2 62.3 mmHg (35.0-45.0); BG PH 7.255 (7.350-7.450); BG PO2 141.1 mmHg (75.0-100.0); BG SAMPLE SITE RIGHT RADIAL; BG TOTAL HEMOGLOBIN 7.4 g/dL (12.0-18.0); BG VENT MODE VENT - PRVC
[2023-08-01] MEDS: QUETIAPINE FUMARATE 50MG TABLET PO SCH ×2 (08:57→21:24)
[2023-08-01] MEDS: PANTOPRAZOLE SODIUM 40 MG/VIAL IV SCH (08:57)
[2023-08-01] MEDS: PAROXETINE HCL 10MG TABLET PO SCH (08:57)
[2023-08-01] MEDS: BUPROPION HCL 150MG TABLET XL 24HR PO SCH (08:57)
[2023-08-01] MEDS: METHYLPREDNISOLONE SOD SUCC 40MG/ML (ACT-O-VIAL) IV SCH (08:57)
[2023-08-01] MEDS: IPRATROPIUM/ALBUTEROL 0.5-3(2.5)MG/3ML NEB HHN PRN ×4 (09:36→14:53)
[2023-08-01] MEDS: KCL 20MEQ/100ML PREMIX 100 ML IV SCH ×2 (10:24→12:20)
[2023-08-01] MEDS: ACETAMINOPHEN 650MG SUPP PR PRN (10:58)
[2023-08-01] MEDS: MIDAZOLAM HCL 100 MG in SODIUM CHLORIDE 0.9% 80 ML IV PRN (12:21)
[2023-08-01] MEDS ORDERED: ROCURONIUM BROMIDE 10MG/ML VIAL 5ML IV ONE ×3 (15:25→16:31)
[2023-08-01] MEDS ORDERED: MIDAZOLAM HCL 2 MG/2 ML VIAL ONE (15:25)
[2023-08-01] MEDS: DEXMEDETOMIDINE 400 MCG/100 ML 100 ML IV PRN ×2 (15:30→20:16)
[2023-08-01] MEDS: HALOPERIDOL LACTATE 5MG/ML VIAL IM PRN (20:15)
[2023-08-01 20:30] LABS: HEMATOCRIT 24.2 % (36.0-48.0); HEMOGLOBIN 8.2 g/dL (12.0-16.0)
[2023-08-01] MEDS: LORAZEPAM 2MG/ML CPJ IV PRN (23:20)
[2023-08-02] VITALS (53 sets, daily range): BP systolic 141–186; BP diastolic 35–117; PULSE 52–93; RESP 16–36; TEMP 98.9–100.8
[2023-08-02] MEDS: BLOOD SUGAR DIAGNOSTIC STRIP TEST SCH ×4 (00:38→18:00)
[2023-08-02] MEDS: LORAZEPAM 2MG/ML CPJ IV PRN ×2 (05:40→07:45)
[2023-08-02] MEDS: PIPERACILLIN/TAZOBACTAM 3.375 G in DEXTROSE 5% WATER 50 ML IV SCH ×2 (05:58→14:50)
[2023-08-02] MEDS: INSULIN LISPRO 100 UNITS/ML SUBCUT SCH ×4 (05:59→18:00)
[2023-08-02 06:01] LABS: CHLORIDE 108 mEq/L (98-107); INDEX HEMOLYSI 1 (1-3); INDEX ICTERIC 1 (1-4); INDEX LIPEMIC 1 (1-3); POTASSIUM 3.4 mEq/L (3.5-5.1); SODIUM 138 mEq/L (136-145)
[2023-08-02 06:13] LABS: CARBON DIOXIDE 27 mEq/L (21-32); CREATININE 0.6 mg/dL (0.6-1.3); GLUCOSE 128 mg/dL (70-105); PHOSPHORUS 2.9 mg/dL (2.5-4.9); UREA NITROGEN BLOOD 14 mg/dL (7-21)
[2023-08-02 06:16] LABS: BASOPHILS % 0.3 % (0.0-2.0); EOSINOPHILS % 0.8 % (0.0-5.0); HEMATOCRIT. 23.8 % (36.0-48.0); HEMOGLOBIN. 7.9 g/dL (12.0-16.0); LYMPHOCYTES % 12.2 % (20.0-50.0); MEAN CORPUSCULAR HEMOGLOBIN 31.1 pg (28.0-32.0); MEAN CORPUSCULAR HGB CONC 33.2 g/dL (31.0-37.0); MEAN CORPUSCULAR VOLUME 93.6 fL (81.0-99.0); MEAN PLATELET VOLUME 8.1 fl (7.4-10.4); MONOCYTES % 4.5 % (2.0-8.0); NEUTROPHILS % 82.2 % (40.0-76.0); PLATELET 357 x1000/uL (130-400); RED BLOOD CELL COUNT 2.55 mill/uL (4.2-5.4); RED CELL DISTRIBUTION WIDTH 14.6 % (11.6-14.6); WHITE BLOOD COUNT 8.4 x1000/uL (4.5-11.0)
[2023-08-02] MEDS: PANTOPRAZOLE SODIUM 40 MG/VIAL IV SCH (08:28)
[2023-08-02] MEDS: MORPHINE SULFATE 2 MG/ML CPJ (NOT FOR IM USE) IV PRN ×2 (08:28→12:57)
[2023-08-02] MEDS: PAROXETINE HCL 10MG TABLET PO SCH (08:29)
[2023-08-02] MEDS: QUETIAPINE FUMARATE 50MG TABLET PO SCH ×2 (08:29→20:32)
[2023-08-02] MEDS: METHYLPREDNISOLONE SOD SUCC 40MG/ML (ACT-O-VIAL) IV SCH (08:29)
[2023-08-02] MEDS: BUPROPION HCL 150MG TABLET XL 24HR PO SCH (08:29)
[2023-08-02] MEDS: IPRATROPIUM/ALBUTEROL 0.5-3(2.5)MG/3ML NEB HHN PRN (08:44)
[2023-08-02 09:30] LABS: BG BASE EXCESS 2.4 mmol/L (-2.0-2.0); BG CARBOXYHEMOGLOBIN 0.3 % (0.5-1.5); BG DEOXYHEMOGLOBIN 1.4 % (0.0-5.0); BG FRACTION INSPIRED OXYGEN 50; BG METHEMOGLOBIN 0.3 % (0.0-1.5); BG OXYGEN SATURATION 98.6 % (92.0-98.5); BG PH 7.476 (7.350-7.450); BG PO2 130.2 mmHg (75.0-100.0); BG SAMPLE SITE RIGHT RADIAL; BG TOTAL HEMOGLOBIN 9.2 g/dL (12.0-18.0); BG VENT MODE VENT - PRVC
[2023-08-02] MEDS: IPRATROPIUM/ALBUTEROL 0.5-3(2.5)MG/3ML NEB HHN SCH ×3 (12:38→20:19)
[2023-08-02] MEDS: BUDESONIDE 0.5MG/2ML NEB HHN SCH ×2 (12:38→20:18)
[2023-08-02] MEDS: ACETAMINOPHEN 650MG/20.3ML UDC PO PRN (12:56)
[2023-08-03] VITALS (23 sets, daily range): BP systolic 145–175; BP diastolic 51–97; PULSE 63–109; RESP 10–33; TEMP 98.2–98.9
[2023-08-03] MEDS: PIPERACILLIN/TAZOBACTAM 3.375 G in DEXTROSE 5% WATER 50 ML IV SCH ×3 (01:15→21:55)
[2023-08-03] MEDS: LORAZEPAM 2MG/ML CPJ IV PRN (01:23)
[2023-08-03] MEDS: IPRATROPIUM/ALBUTEROL 0.5-3(2.5)MG/3ML NEB HHN SCH ×6 (05:06→20:07)
[2023-08-03 06:01] LABS: BASOPHILS % 0.2 % (0.0-2.0); EOSINOPHILS % 1.6 % (0.0-5.0); HEMATOCRIT. 24.5 % (36.0-48.0); HEMOGLOBIN. 8.2 g/dL (12.0-16.0); LYMPHOCYTES % 12.9 % (20.0-50.0); MEAN CORPUSCULAR HEMOGLOBIN 31.4 pg (28.0-32.0); MEAN CORPUSCULAR HGB CONC 33.7 g/dL (31.0-37.0); MEAN CORPUSCULAR VOLUME 93.3 fL (81.0-99.0); MEAN PLATELET VOLUME 7.7 fl (7.4-10.4); MONOCYTES % 6.8 % (2.0-8.0); NEUTROPHILS % 78.5 % (40.0-76.0); PLATELET 384 x1000/uL (130-400); RED BLOOD CELL COUNT 2.62 mill/uL (4.2-5.4); RED CELL DISTRIBUTION WIDTH 14.5 % (11.6-14.6); WHITE BLOOD COUNT 8.1 x1000/uL (4.5-11.0)
[2023-08-03 06:03] LABS: CHLORIDE 107 mEq/L (98-107); INDEX HEMOLYSI 1 (1-3); INDEX ICTERIC 1 (1-4); INDEX LIPEMIC 1 (1-3); SODIUM 138 mEq/L (136-145)
[2023-08-03 06:10] LABS: CALCIUM 8.6 mg/dL (8.5-10.1); CARBON DIOXIDE 29 mEq/L (21-32); CREATININE 0.6 mg/dL (0.6-1.3); GLUCOSE 124 mg/dL (70-105); UREA NITROGEN BLOOD 11 mg/dL (7-21)
[2023-08-03] MEDS: BUDESONIDE 0.5MG/2ML NEB HHN SCH ×2 (07:49→20:07)
[2023-08-03] MEDS: PANTOPRAZOLE SODIUM 40 MG/VIAL IV SCH (08:56)
[2023-08-03] MEDS: PAROXETINE HCL 10MG TABLET PO SCH (08:57)
[2023-08-03] MEDS: QUETIAPINE FUMARATE 50MG TABLET PO SCH ×2 (08:57→21:55)
[2023-08-03] MEDS: BUPROPION HCL 150MG TABLET XL 24HR PO SCH (08:57)
[2023-08-03] MEDS: BLOOD SUGAR DIAGNOSTIC STRIP TEST SCH ×3 (11:19→17:14)
[2023-08-03] MEDS: INSULIN LISPRO 100 UNITS/ML SUBCUT SCH ×3 (11:33→17:27)
[2023-08-03] MEDS ORDERED: MIDAZOLAM HCL 5 MG/5 ML VIAL ONE (15:23)
[2023-08-03] MEDS ORDERED: PROPOFOL 200MG/20ML VIAL IV ONE (15:23)
[2023-08-03] MEDS ORDERED: ROCURONIUM BROMIDE 10MG/ML VIAL 5ML IV ONE (15:24)
[2023-08-03] MEDS ORDERED: NALOXONE HCL 0.4MG/ML VIAL IV PRN (15:30)
[2023-08-03] MEDS: HYDRALAZINE 20MG/ML VIAL IV PRN (16:59)
[2023-08-03] MEDS: MORPHINE SULFATE 2 MG/ML CPJ (NOT FOR IM USE) IV PRN (17:17)
[2023-08-04] VITALS (26 sets, daily range): BP systolic 127–176; BP diastolic 64–87; PULSE 72–110; RESP 16–59; TEMP 97.5–98.7
[2023-08-04] MEDS: IPRATROPIUM/ALBUTEROL 0.5-3(2.5)MG/3ML NEB HHN SCH ×6 (00:15→20:20)
[2023-08-04] MEDS: MORPHINE SULFATE 2 MG/ML CPJ (NOT FOR IM USE) IV PRN ×5 (01:52→21:34)
[2023-08-04] MEDS: INSULIN LISPRO 100 UNITS/ML SUBCUT SCH ×4 (05:15→18:00)
[2023-08-04] MEDS: PIPERACILLIN/TAZOBACTAM 3.375 G in DEXTROSE 5% WATER 50 ML IV SCH ×3 (05:16→21:34)
[2023-08-04] MEDS: BLOOD SUGAR DIAGNOSTIC STRIP TEST SCH ×4 (05:37→18:02)
[2023-08-04] MEDS: METOCLOPRAMIDE HCL 10MG/2ML VIAL IV SCH ×3 (05:37→17:52)
[2023-08-04 07:18] LABS: BASOPHILS % 0.4 % (0.0-2.0); EOSINOPHILS % 2.6 % (0.0-5.0); HEMATOCRIT. 25.6 % (36.0-48.0); HEMOGLOBIN. 8.7 g/dL (12.0-16.0); LYMPHOCYTES % 16.4 % (20.0-50.0); MEAN CORPUSCULAR HEMOGLOBIN 31.5 pg (28.0-32.0); MEAN CORPUSCULAR HGB CONC 33.8 g/dL (31.0-37.0); MEAN CORPUSCULAR VOLUME 93.3 fL (81.0-99.0); MEAN PLATELET VOLUME 7.7 fl (7.4-10.4); MONOCYTES % 7.5 % (2.0-8.0); NEUTROPHILS % 73.1 % (40.0-76.0); PLATELET 451 x1000/uL (130-400); RED BLOOD CELL COUNT 2.74 mill/uL (4.2-5.4); RED CELL DISTRIBUTION WIDTH 14.9 % (11.6-14.6)
[2023-08-04 08:00] LABS: CHLORIDE 105 mEq/L (98-107); INDEX HEMOLYSI 1 (1-3); INDEX ICTERIC 1 (1-4); INDEX LIPEMIC 1 (1-3); SODIUM 141 mEq/L (136-145)
[2023-08-04 08:09] LABS: CALCIUM 8.7 mg/dL (8.5-10.1); CARBON DIOXIDE 26 mEq/L (21-32); CREATININE 0.6 mg/dL (0.6-1.3); GLUCOSE 133 mg/dL (70-105); UREA NITROGEN BLOOD 10 mg/dL (7-21)
[2023-08-04] MEDS: QUETIAPINE FUMARATE 50MG TABLET PO SCH ×2 (08:25→21:34)
[2023-08-04] MEDS: PANTOPRAZOLE SODIUM 40 MG/VIAL IV SCH (08:25)
[2023-08-04] MEDS: PAROXETINE HCL 10MG TABLET PO SCH (08:29)
[2023-08-04] MEDS: BUPROPION HCL 150MG TABLET XL 24HR PO SCH (08:29)
[2023-08-04] MEDS: BUDESONIDE 0.5MG/2ML NEB HHN SCH (08:45)
[2023-08-04 09:41] LABS: POTASSIUM 2.8 mEq/L (3.5-5.1)
[2023-08-04] MEDS: AMLODIPINE 10MG TABLET PEG SCH (10:06)
[2023-08-04] MEDS: POTASSIUM CHLORIDE 20MEQ/PACKET GT SCH ×5 (11:12→18:45)
[2023-08-04 13:41] LABS: BG BASE EXCESS 0.7 mmol/L (-2.0-2.0); BG CARBOXYHEMOGLOBIN 0.3 % (0.5-1.5); BG DEOXYHEMOGLOBIN 3.3 % (0.0-5.0); BG FRACTION INSPIRED OXYGEN 40; BG HCO3 ACT 24.8 mmol/L (22.0-26.0); BG METHEMOGLOBIN 0.3 % (0.0-1.5); BG OXYGEN SATURATION 96.7 % (92.0-98.5); BG OXYHEMOGLOBIN 96.1 % (94.0-97.0); BG PCO2 37.9 mmHg (35.0-45.0); BG PH 7.434 (7.350-7.450); BG PO2 89.3 mmHg (75.0-100.0); BG SAMPLE SITE RIGHT RADIAL; BG TOTAL HEMOGLOBIN 9.8 g/dL (12.0-18.0); BG VENT MODE VENT - SIMV
[2023-08-05] VITALS (22 sets, daily range): BP systolic 124–155; BP diastolic 56–98; PULSE 78–104; RESP 18–40; TEMP 97.5–98.9; O2SAT 96
[2023-08-05] MEDS: IPRATROPIUM/ALBUTEROL 0.5-3(2.5)MG/3ML NEB HHN SCH ×6 (00:15→20:04)
[2023-08-05] MEDS: MORPHINE SULFATE 2 MG/ML CPJ (NOT FOR IM USE) IV PRN ×5 (02:10→23:18)
[2023-08-05] MEDS: METOCLOPRAMIDE HCL 10MG/2ML VIAL IV SCH ×5 (02:19→23:18)
[2023-08-05] MEDS: INSULIN LISPRO 100 UNITS/ML SUBCUT SCH ×4 (05:30→17:41)
[2023-08-05] MEDS: PIPERACILLIN/TAZOBACTAM 3.375 G in DEXTROSE 5% WATER 50 ML IV SCH ×3 (05:30→21:17)
[2023-08-05] MEDS: BLOOD SUGAR DIAGNOSTIC STRIP TEST SCH ×4 (05:30→17:41)
[2023-08-05] MEDS: BUDESONIDE 0.5MG/2ML NEB HHN SCH ×2 (08:22→20:04)
[2023-08-05] MEDS: QUETIAPINE FUMARATE 50MG TABLET PO SCH ×2 (09:00→20:38)
[2023-08-05] MEDS: PANTOPRAZOLE SODIUM 40 MG/VIAL IV SCH (09:00)
[2023-08-05] MEDS: PAROXETINE HCL 10MG TABLET PO SCH (09:01)
[2023-08-05] MEDS: AMLODIPINE 10MG TABLET PEG SCH (09:01)
[2023-08-05] MEDS: BUPROPION HCL 150MG TABLET XL 24HR PO SCH (09:01)
[2023-08-05 15:25] LABS: BG BASE EXCESS -0.3 mmol/L (-2.0-2.0); BG CARBOXYHEMOGLOBIN 0.3 % (0.5-1.5); BG DEOXYHEMOGLOBIN 0.9 % (0.0-5.0); BG FRACTION INSPIRED OXYGEN 40; BG HCO3 ACT 23.7 mmol/L (22.0-26.0); BG METHEMOGLOBIN 0.3 % (0.0-1.5); BG OXYGEN SATURATION 99.1 % (92.0-98.5); BG OXYHEMOGLOBIN 98.5 % (94.0-97.0); BG PCO2 35.8 mmHg (35.0-45.0); BG PH 7.438 (7.350-7.450); BG PO2 199.1 mmHg (75.0-100.0); BG SAMPLE SITE RIGHT RADIAL; BG TOTAL HEMOGLOBIN 9.3 g/dL (12.0-18.0); BG VENT MODE VENT - CPAP
[2023-08-06] VITALS (18 sets, daily range): BP systolic 121–151; BP diastolic 62–84; PULSE 80–96; RESP 18–33; TEMP 97.7–98.8; O2SAT 97–100
[2023-08-06] MEDS: BLOOD SUGAR DIAGNOSTIC STRIP TEST SCH ×5 (00:08→23:22)
[2023-08-06] MEDS: IPRATROPIUM/ALBUTEROL 0.5-3(2.5)MG/3ML NEB HHN SCH ×6 (00:15→21:18)
[2023-08-06] MEDS: MORPHINE SULFATE 2 MG/ML CPJ (NOT FOR IM USE) IV PRN ×5 (03:43→23:22)
[2023-08-06] MEDS: PIPERACILLIN/TAZOBACTAM 3.375 G in DEXTROSE 5% WATER 50 ML IV SCH ×3 (05:18→22:12)
[2023-08-06] MEDS: INSULIN LISPRO 100 UNITS/ML SUBCUT SCH ×5 (05:18→23:22)
[2023-08-06] MEDS: BUDESONIDE 0.5MG/2ML NEB HHN SCH ×2 (08:46→21:18)
[2023-08-06] MEDS: PANTOPRAZOLE SODIUM 40 MG/VIAL IV SCH (09:02)
[2023-08-06] MEDS: QUETIAPINE FUMARATE 50MG TABLET PO SCH ×2 (09:03→20:08)
[2023-08-06] MEDS: PAROXETINE HCL 10MG TABLET PO SCH (09:04)
[2023-08-06] MEDS: AMLODIPINE 10MG TABLET PEG SCH (09:04)
[2023-08-06] MEDS: BUPROPION HCL 150MG TABLET XL 24HR PO SCH (09:08)
[2023-08-07] VITALS (18 sets, daily range): BP systolic 129–158; BP diastolic 61–93; PULSE 80–93; RESP 15–33; TEMP 98.5–98.9; O2SAT 94–100
[2023-08-07] MEDS: IPRATROPIUM/ALBUTEROL 0.5-3(2.5)MG/3ML NEB HHN SCH ×4 (00:41→12:07)
[2023-08-07] MEDS: MORPHINE SULFATE 2 MG/ML CPJ (NOT FOR IM USE) IV PRN ×5 (03:45→22:46)
[2023-08-07] MEDS: PIPERACILLIN/TAZOBACTAM 3.375 G in DEXTROSE 5% WATER 50 ML IV SCH ×3 (05:06→21:00)
[2023-08-07] MEDS: INSULIN LISPRO 100 UNITS/ML SUBCUT SCH ×3 (05:06→18:00)
[2023-08-07] MEDS: BLOOD SUGAR DIAGNOSTIC STRIP TEST SCH ×3 (05:06→18:24)
[2023-08-07] MEDS: BUDESONIDE 0.5MG/2ML NEB HHN SCH ×2 (08:13→21:00)
[2023-08-07] MEDS: BUPROPION HCL 150MG TABLET XL 24HR PO SCH (08:23)
[2023-08-07] MEDS: QUETIAPINE FUMARATE 50MG TABLET PO SCH ×2 (08:23→21:00)
[2023-08-07] MEDS: PAROXETINE HCL 10MG TABLET PO SCH (08:23)
[2023-08-07] MEDS: PANTOPRAZOLE SODIUM 40 MG/VIAL IV SCH (08:23)
[2023-08-07] MEDS: AMLODIPINE 10MG TABLET PEG SCH (08:24)
[2023-08-07] MEDS: ACETAMINOPHEN 650MG SUPP PR PRN (10:34)
[2023-08-07] MEDS: IPRATROPIUM/ALBUTEROL 0.5-3(2.5)MG/3ML NEB HHN PRN (16:15)
[2023-08-08] VITALS (13 sets, daily range): BP systolic 128–169; BP diastolic 50–91; PULSE 77–97; RESP 7–49; TEMP 98.3–99.2; O2SAT 95
[2023-08-08] MEDS: BLOOD SUGAR DIAGNOSTIC STRIP TEST SCH ×4 (00:31→18:10)
[2023-08-08] MEDS: MORPHINE SULFATE 2 MG/ML CPJ (NOT FOR IM USE) IV PRN ×4 (03:32→20:26)
[2023-08-08] MEDS: INSULIN LISPRO 100 UNITS/ML SUBCUT SCH ×4 (05:08→18:00)
[2023-08-08] MEDS: PIPERACILLIN/TAZOBACTAM 3.375 G in DEXTROSE 5% WATER 50 ML IV SCH ×3 (05:08→21:15)
[2023-08-08] MEDS: BUDESONIDE 0.5MG/2ML NEB HHN SCH (09:06)
[2023-08-08] MEDS: PAROXETINE HCL 10MG TABLET PO SCH (09:32)
[2023-08-08] MEDS: PANTOPRAZOLE SODIUM 40 MG/VIAL IV SCH (09:32)
[2023-08-08] MEDS: BUPROPION HCL 150MG TABLET XL 24HR PO SCH (09:32)
[2023-08-08] MEDS: QUETIAPINE FUMARATE 50MG TABLET PO SCH ×2 (09:32→21:15)
[2023-08-08] MEDS: AMLODIPINE 10MG TABLET PEG SCH (09:33)
[2023-08-08] MEDS: HYDRALAZINE 20MG/ML VIAL IV PRN (21:26)
[2023-08-09] VITALS (13 sets, daily range): BP systolic 111–162; BP diastolic 47–99; PULSE 79–98; RESP 13–32; TEMP 97.1–98.6; O2SAT 96
[2023-08-09] MEDS: MORPHINE SULFATE 2 MG/ML CPJ (NOT FOR IM USE) IV PRN ×5 (00:53→17:58)
[2023-08-09] MEDS: BLOOD SUGAR DIAGNOSTIC STRIP TEST SCH ×4 (05:53→17:51)
[2023-08-09] MEDS: INSULIN LISPRO 100 UNITS/ML SUBCUT SCH ×4 (05:53→17:51)
[2023-08-09 06:59] LABS: BASOPHILS % 0.9 % (0.0-2.0); EOSINOPHILS % 3.6 % (0.0-5.0); HEMATOCRIT. 28.5 % (36.0-48.0); HEMOGLOBIN. 9.5 g/dL (12.0-16.0); LYMPHOCYTES % 23.8 % (20.0-50.0); MEAN CORPUSCULAR HEMOGLOBIN 30.9 pg (28.0-32.0); MEAN CORPUSCULAR HGB CONC 33.3 g/dL (31.0-37.0); MEAN CORPUSCULAR VOLUME 92.9 fL (81.0-99.0); MEAN PLATELET VOLUME 7.6 fl (7.4-10.4); MONOCYTES % 9.9 % (2.0-8.0); NEUTROPHILS % 61.8 % (40.0-76.0); PLATELET 477 x1000/uL (130-400); RED BLOOD CELL COUNT 3.07 mill/uL (4.2-5.4); RED CELL DISTRIBUTION WIDTH 14.7 % (11.6-14.6); WHITE BLOOD COUNT 5.6 x1000/uL (4.5-11.0)
[2023-08-09 07:14] LABS: CALCIUM 8.9 mg/dL (8.5-10.1); CHLORIDE 99 mEq/L (98-107); INDEX HEMOLYSI 1 (1-3); INDEX ICTERIC 1 (1-4); INDEX LIPEMIC 1 (1-3); POTASSIUM 3.2 mEq/L (3.5-5.1); SODIUM 136 mEq/L (136-145)
[2023-08-09 07:19] LABS: CARBON DIOXIDE 32 mEq/L (21-32); CREATININE 0.4 mg/dL (0.6-1.3); GLUCOSE 130 mg/dL (70-105); UREA NITROGEN BLOOD 10 mg/dL (7-21)
[2023-08-09] MEDS ORDERED: POTASSIUM CHLORIDE INJ 40 MEQ in DEXT 5% WATER 250 ML IV ONE (09:15)
[2023-08-09] MEDS: PANTOPRAZOLE SODIUM 40 MG/VIAL IV SCH (09:40)
[2023-08-09] MEDS: AMLODIPINE 10MG TABLET PEG SCH (09:41)
[2023-08-09] MEDS: QUETIAPINE FUMARATE 50MG TABLET PO SCH ×2 (09:41→20:18)
[2023-08-09] MEDS: PAROXETINE HCL 10MG TABLET PO SCH (09:41)
[2023-08-09] MEDS: BUPROPION HCL 150MG TABLET XL 24HR PO SCH (09:41)
[2023-08-09] MEDS ORDERED: POTASSIUM CHLORIDE 20MEQ/PACKET GT NR (10:00)
[2023-08-09] MEDS ORDERED: KCL 20MEQ/100ML X 2 FOR TOTAL KCL 40MEQ/200ML IV SCH (11:00)
[2023-08-09] MEDS ORDERED: NALOXONE HCL 0.4MG/ML VIAL IV PRN (14:15)
[2023-08-09] MEDS: GUAIFENESIN 200MG/10ML SUGAR FREE UDC PO SCH (17:58)
[2023-08-09] MEDS: IPRATROPIUM/ALBUTEROL 0.5-3(2.5)MG/3ML NEB HHN PRN (20:36)
[2023-08-10] VITALS (14 sets, daily range): BP systolic 113–157; BP diastolic 69–97; PULSE 80–104; RESP 12–40; TEMP 97.1–98; O2SAT 96
[2023-08-10] MEDS: MORPHINE SULFATE 2 MG/ML CPJ (NOT FOR IM USE) IV PRN ×4 (03:11→21:56)
[2023-08-10] MEDS: IPRATROPIUM/ALBUTEROL 0.5-3(2.5)MG/3ML NEB HHN PRN (04:48)
[2023-08-10] MEDS: INSULIN LISPRO 100 UNITS/ML SUBCUT SCH ×4 (06:00→17:54)
[2023-08-10] MEDS: BLOOD SUGAR DIAGNOSTIC STRIP TEST SCH ×4 (06:07→17:11)
[2023-08-10] MEDS: GUAIFENESIN 200MG/10ML SUGAR FREE UDC PO SCH ×5 (06:08→23:41)
[2023-08-10] MEDS: PAROXETINE HCL 10MG TABLET PO SCH (08:25)
[2023-08-10] MEDS: AMLODIPINE 10MG TABLET PEG SCH (08:25)
[2023-08-10] MEDS: BUPROPION HCL 150MG TABLET XL 24HR PO SCH (08:25)
[2023-08-10] MEDS: PANTOPRAZOLE SODIUM 40 MG/VIAL IV SCH (08:26)
[2023-08-10] MEDS: QUETIAPINE FUMARATE 50MG TABLET PO SCH ×2 (08:26→20:31)
[2023-08-10 12:09] LABS: BASOPHILS % 0.9 % (0.0-2.0); EOSINOPHILS % 4.3 % (0.0-5.0); HEMATOCRIT. 28.2 % (36.0-48.0); HEMOGLOBIN. 9.3 g/dL (12.0-16.0); LYMPHOCYTES % 27.7 % (20.0-50.0); MEAN CORPUSCULAR HEMOGLOBIN 30.3 pg (28.0-32.0); MEAN CORPUSCULAR HGB CONC 32.8 g/dL (31.0-37.0); MEAN CORPUSCULAR VOLUME 92.4 fL (81.0-99.0); MEAN PLATELET VOLUME 7.4 fl (7.4-10.4); MONOCYTES % 7.9 % (2.0-8.0); NEUTROPHILS % 59.2 % (40.0-76.0); PLATELET 437 x1000/uL (130-400); RED BLOOD CELL COUNT 3.05 mill/uL (4.2-5.4); RED CELL DISTRIBUTION WIDTH 14.2 % (11.6-14.6); WHITE BLOOD COUNT 5.1 x1000/uL (4.5-11.0)
[2023-08-10 12:24] LABS: CALCIUM 8.6 mg/dL (8.5-10.1); CHLORIDE 99 mEq/L (98-107); INDEX HEMOLYSI 1 (1-3); INDEX ICTERIC 1 (1-4); INDEX LIPEMIC 1 (1-3); POTASSIUM 3.4 mEq/L (3.5-5.1); SODIUM 135 mEq/L (136-145)
[2023-08-10 12:31] LABS: CARBON DIOXIDE 31 mEq/L (21-32); CREATININE 0.4 mg/dL (0.6-1.3); GLUCOSE 152 mg/dL (70-105); UREA NITROGEN BLOOD 12 mg/dL (7-21)
[2023-08-10] MEDS ORDERED: POTASSIUM CHLORIDE 20MEQ TABLET SR PO NR (14:00)
[2023-08-10] MEDS: IPRATROPIUM/ALBUTEROL 0.5-3(2.5)MG/3ML NEB HHN SCH (21:31)
[2023-08-11] VITALS (17 sets, daily range): BP systolic 120–142; BP diastolic 72–91; PULSE 79–111; RESP 16–34; TEMP 98.2–98.8; O2SAT 95–100
[2023-08-11] MEDS: IPRATROPIUM/ALBUTEROL 0.5-3(2.5)MG/3ML NEB HHN SCH ×4 (02:11→20:35)
[2023-08-11] MEDS: MORPHINE SULFATE 2 MG/ML CPJ (NOT FOR IM USE) IV PRN ×3 (02:59→19:10)
[2023-08-11] MEDS: GUAIFENESIN 200MG/10ML SUGAR FREE UDC PO SCH ×4 (05:05→23:39)
[2023-08-11] MEDS: BLOOD SUGAR DIAGNOSTIC STRIP TEST SCH ×4 (05:37→17:00)
[2023-08-11] MEDS: INSULIN LISPRO 100 UNITS/ML SUBCUT SCH ×4 (05:37→17:00)
[2023-08-11] MEDS: BUPROPION HCL 150MG TABLET XL 24HR PO SCH (08:50)
[2023-08-11] MEDS: QUETIAPINE FUMARATE 50MG TABLET PO SCH ×2 (08:51→20:52)
[2023-08-11] MEDS: PANTOPRAZOLE SODIUM 40 MG/VIAL IV SCH (08:51)
[2023-08-11] MEDS: PAROXETINE HCL 10MG TABLET PO SCH (08:51)
[2023-08-11] MEDS: AMLODIPINE 10MG TABLET PEG SCH (08:55)
[2023-08-11 13:11] LABS: BASOPHILS % 0.7 % (0.0-2.0); EOSINOPHILS % 3.4 % (0.0-5.0); HEMATOCRIT. 30.4 % (36.0-48.0); LYMPHOCYTES % 29.9 % (20.0-50.0); MEAN CORPUSCULAR HEMOGLOBIN 30.5 pg (28.0-32.0); MEAN CORPUSCULAR VOLUME 92.2 fL (81.0-99.0); MEAN PLATELET VOLUME 7.6 fl (7.4-10.4); MONOCYTES % 9.1 % (2.0-8.0); NEUTROPHILS % 56.9 % (40.0-76.0); PLATELET 496 x1000/uL (130-400); RED BLOOD CELL COUNT 3.29 mill/uL (4.2-5.4); RED CELL DISTRIBUTION WIDTH 14.6 % (11.6-14.6); WHITE BLOOD COUNT 6.1 x1000/uL (4.5-11.0)
[2023-08-11 15:32] LABS: CHLORIDE 97 mEq/L (98-107); INDEX HEMOLYSI 1 (1-3); INDEX ICTERIC 1 (1-4); INDEX LIPEMIC 1 (1-3); POTASSIUM 3.7 mEq/L (3.5-5.1); SODIUM 135 mEq/L (136-145)
[2023-08-11 15:53] LABS: CALCIUM 9.4 mg/dL (8.5-10.1); CARBON DIOXIDE 28 mEq/L (21-32); CREATININE 0.5 mg/dL (0.6-1.3); GLUCOSE 134 mg/dL (70-105); UREA NITROGEN BLOOD 15 mg/dL (7-21)
[2023-08-11] MEDS ORDERED: NALOXONE HCL 0.4MG/ML VIAL IV PRN (18:30)
[2023-08-12] VITALS (22 sets, daily range): BP systolic 50–133; BP diastolic 35–88; PULSE 76–118; RESP 14–29; TEMP 97.3–98.6; O2SAT 93–96
[2023-08-12] MEDS: BLOOD SUGAR DIAGNOSTIC STRIP TEST SCH ×4 (00:16→17:05)
[2023-08-12] MEDS: MORPHINE SULFATE 2 MG/ML CPJ (NOT FOR IM USE) IV PRN ×6 (00:16→22:15)
[2023-08-12] MEDS: IPRATROPIUM/ALBUTEROL 0.5-3(2.5)MG/3ML NEB HHN SCH ×4 (01:46→20:36)
[2023-08-12] MEDS: GUAIFENESIN 200MG/10ML SUGAR FREE UDC PO SCH ×3 (06:00→17:05)
[2023-08-12] MEDS: INSULIN LISPRO 100 UNITS/ML SUBCUT SCH ×4 (06:00→17:35)
[2023-08-12] MEDS: PANTOPRAZOLE SODIUM 40 MG/VIAL IV SCH (08:37)
[2023-08-12] MEDS: QUETIAPINE FUMARATE 50MG TABLET PO SCH ×2 (08:38→13:39)
[2023-08-12] MEDS: AMLODIPINE 10MG TABLET PEG SCH (08:39)
[2023-08-12] MEDS: BUPROPION HCL 150MG TABLET XL 24HR PO SCH (08:51)
[2023-08-12] MEDS: PAROXETINE HCL 10MG TABLET PO SCH (13:38)
[2023-08-12] MEDS: ACETAMINOPHEN 650MG/20.3ML UDC PO PRN (20:50)
[2023-08-13] VITALS (17 sets, daily range): BP systolic 110–159; BP diastolic 46–84; PULSE 76–92; RESP 6–27; TEMP 96.7–98.5; O2SAT 96–100
[2023-08-13] MEDS: BLOOD SUGAR DIAGNOSTIC STRIP TEST SCH ×5 (00:09→23:23)
[2023-08-13] MEDS: GUAIFENESIN 200MG/10ML SUGAR FREE UDC PO SCH ×5 (00:09→23:18)
[2023-08-13] MEDS: IPRATROPIUM/ALBUTEROL 0.5-3(2.5)MG/3ML NEB HHN SCH ×6 (00:38→20:17)
[2023-08-13] MEDS: ACETYLCYSTEINE 100MG/ML 10% VIAL 4ML INH SCH ×2 (00:38→18:21)
[2023-08-13] MEDS: DIPHENHYDRAMINE 50MG/ML VIAL IV PRN (01:57)
[2023-08-13] MEDS: MORPHINE SULFATE 2 MG/ML CPJ (NOT FOR IM USE) IV PRN ×5 (01:58→20:13)
[2023-08-13] MEDS: INSULIN LISPRO 100 UNITS/ML SUBCUT SCH ×5 (06:00→23:24)
[2023-08-13] MEDS: QUETIAPINE FUMARATE 50MG TABLET PO SCH ×2 (08:41→20:11)
[2023-08-13] MEDS: PANTOPRAZOLE SODIUM 40 MG/VIAL IV SCH (08:41)
[2023-08-13] MEDS: PAROXETINE HCL 10MG TABLET PO SCH (08:41)
[2023-08-13] MEDS: ACETAMINOPHEN 650MG/20.3ML UDC PO PRN (08:42)
[2023-08-13] MEDS: AMLODIPINE 10MG TABLET PEG SCH (08:43)
[2023-08-13] MEDS: BUPROPION HCL 150MG TABLET XL 24HR PO SCH (08:55)
[2023-08-14] VITALS (15 sets, daily range): BP systolic 115–135; BP diastolic 50–72; PULSE 77–96; RESP 10–30; TEMP 97.7–98.6; O2SAT 96–99
[2023-08-14] MEDS: MORPHINE SULFATE 2 MG/ML CPJ (NOT FOR IM USE) IV PRN ×4 (00:12→17:31)
[2023-08-14] MEDS: ACETYLCYSTEINE 100MG/ML 10% VIAL 4ML INH SCH ×3 (00:26→15:23)
[2023-08-14] MEDS: IPRATROPIUM/ALBUTEROL 0.5-3(2.5)MG/3ML NEB HHN SCH ×6 (00:26→20:42)
[2023-08-14] MEDS: INSULIN LISPRO 100 UNITS/ML SUBCUT SCH ×3 (06:00→18:00)
[2023-08-14] MEDS: BLOOD SUGAR DIAGNOSTIC STRIP TEST SCH ×3 (06:28→18:20)
[2023-08-14] MEDS: GUAIFENESIN 200MG/10ML SUGAR FREE UDC PO SCH ×3 (06:28→17:31)
[2023-08-14] MEDS: PANTOPRAZOLE SODIUM 40 MG/VIAL IV SCH (08:40)
[2023-08-14] MEDS: BUPROPION HCL 150MG TABLET XL 24HR PO SCH (08:40)
[2023-08-14] MEDS: PAROXETINE HCL 10MG TABLET PO SCH (08:40)
[2023-08-14] MEDS: QUETIAPINE FUMARATE 50MG TABLET PO SCH ×2 (08:41→21:12)
[2023-08-14] MEDS: AMLODIPINE 10MG TABLET PEG SCH (08:41)
[2023-08-15] VITALS (16 sets, daily range): BP systolic 98–139; BP diastolic 45–90; PULSE 77–87; RESP 13–22; TEMP 98–98.4; O2SAT 96–97
[2023-08-15] MEDS: BLOOD SUGAR DIAGNOSTIC STRIP TEST SCH ×4 (00:03→11:33)
[2023-08-15] MEDS: GUAIFENESIN 200MG/10ML SUGAR FREE UDC PO SCH ×5 (00:03→23:55)
[2023-08-15] MEDS: MORPHINE SULFATE 2 MG/ML CPJ (NOT FOR IM USE) IV PRN ×6 (00:04→23:51)
[2023-08-15] MEDS: IPRATROPIUM/ALBUTEROL 0.5-3(2.5)MG/3ML NEB HHN SCH ×5 (00:27→16:47)
[2023-08-15] MEDS: ACETYLCYSTEINE 100MG/ML 10% VIAL 4ML INH SCH ×3 (00:27→16:47)
[2023-08-15] MEDS: INSULIN LISPRO 100 UNITS/ML SUBCUT SCH ×4 (05:44→23:58)
[2023-08-15] MEDS: PAROXETINE HCL 10MG TABLET PO SCH (09:02)
[2023-08-15] MEDS: AMLODIPINE 10MG TABLET PEG SCH (09:02)
[2023-08-15] MEDS: QUETIAPINE FUMARATE 50MG TABLET PO SCH ×2 (09:02→21:08)
[2023-08-15] MEDS: BUPROPION HCL 150MG TABLET XL 24HR PO SCH (09:02)
[2023-08-15] MEDS: PANTOPRAZOLE SODIUM 40 MG/VIAL IV SCH (09:02)
[2023-08-15] MEDS: DIPHENHYDRAMINE 50MG/ML VIAL IV PRN ×2 (21:08→23:51)
[2023-08-16] VITALS (14 sets, daily range): BP systolic 103–135; BP diastolic 63–79; PULSE 73–94; RESP 17–27; TEMP 97.9–99; O2SAT 97
[2023-08-16] MEDS: MORPHINE SULFATE 2 MG/ML CPJ (NOT FOR IM USE) IV PRN ×3 (04:59→15:35)
[2023-08-16] MEDS: GUAIFENESIN 200MG/10ML SUGAR FREE UDC PO SCH ×4 (05:06→21:31)
[2023-08-16] MEDS: BLOOD SUGAR DIAGNOSTIC STRIP TEST SCH ×4 (06:00→17:16)
[2023-08-16] MEDS: INSULIN LISPRO 100 UNITS/ML SUBCUT SCH ×3 (06:00→17:25)
[2023-08-16] MEDS: PANTOPRAZOLE SODIUM 40 MG/VIAL IV SCH (09:28)
[2023-08-16] MEDS: QUETIAPINE FUMARATE 50MG TABLET PO SCH ×2 (09:28→21:30)
[2023-08-16] MEDS: BUPROPION HCL 150MG TABLET XL 24HR PO SCH (09:28)
[2023-08-16] MEDS: PAROXETINE HCL 10MG TABLET PO SCH (09:28)
[2023-08-16] MEDS: AMLODIPINE 10MG TABLET PEG SCH (09:28)
[2023-08-16 10:55] LABS: BASOPHILS % 0.6 % (0.0-2.0); EOSINOPHILS % 4.4 % (0.0-5.0); HEMATOCRIT. 29.1 % (36.0-48.0); HEMOGLOBIN. 9.6 g/dL (12.0-16.0); LYMPHOCYTES % 27.2 % (20.0-50.0); MEAN CORPUSCULAR HEMOGLOBIN 30.1 pg (28.0-32.0); MEAN CORPUSCULAR VOLUME 91.2 fL (81.0-99.0); MEAN PLATELET VOLUME 7.2 fl (7.4-10.4); MONOCYTES % 8.1 % (2.0-8.0); NEUTROPHILS % 59.7 % (40.0-76.0); PLATELET 311 x1000/uL (130-400); RED BLOOD CELL COUNT 3.19 mill/uL (4.2-5.4); RED CELL DISTRIBUTION WIDTH 14.3 % (11.6-14.6); WHITE BLOOD COUNT 6.2 x1000/uL (4.5-11.0)
[2023-08-16 11:22] LABS: CHLORIDE 98 mEq/L (98-107); INDEX HEMOLYSI 1 (1-3); INDEX ICTERIC 1 (1-4); INDEX LIPEMIC 1 (1-3); POTASSIUM 4.1 mEq/L (3.5-5.1); SODIUM 134 mEq/L (136-145)
[2023-08-16 11:31] LABS: CALCIUM 9.4 mg/dL (8.5-10.1); CARBON DIOXIDE 34 mEq/L (21-32); CREATININE 0.5 mg/dL (0.6-1.3); GLUCOSE 112 mg/dL (70-105); UREA NITROGEN BLOOD 14 mg/dL (7-21)
[2023-08-16] MEDS: ACETYLCYSTEINE 100MG/ML 10% VIAL 4ML INH SCH (15:56)
[2023-08-16] MEDS: IPRATROPIUM/ALBUTEROL 0.5-3(2.5)MG/3ML NEB HHN SCH ×2 (15:56→20:11)
[2023-08-16] MEDS: BUDESONIDE 0.5MG/2ML NEB HHN SCH (20:11)
[2023-08-16] MEDS: ACETAMINOPHEN 650MG/20.3ML UDC PO PRN (21:32)
[2023-08-16] MEDS: DIPHENHYDRAMINE 50MG/ML VIAL IV PRN (21:32)
[2023-08-17] VITALS (16 sets, daily range): BP systolic 103–142; BP diastolic 59–85; PULSE 77–99; RESP 17–24; TEMP 97.4–98.6; O2SAT 94–97
[2023-08-17] MEDS: ACETYLCYSTEINE 100MG/ML 10% VIAL 4ML INH SCH ×3 (02:12→14:11)
[2023-08-17] MEDS: IPRATROPIUM/ALBUTEROL 0.5-3(2.5)MG/3ML NEB HHN SCH ×4 (02:13→20:00)
[2023-08-17] MEDS: GUAIFENESIN 200MG/10ML SUGAR FREE UDC PO SCH ×3 (05:08→18:21)
[2023-08-17] MEDS: BLOOD SUGAR DIAGNOSTIC STRIP TEST SCH ×4 (05:08→17:57)
[2023-08-17] MEDS: INSULIN LISPRO 100 UNITS/ML SUBCUT SCH ×4 (05:09→17:57)
[2023-08-17] MEDS: BUDESONIDE 0.5MG/2ML NEB HHN SCH ×2 (07:48→20:00)
[2023-08-17] MEDS: PANTOPRAZOLE SODIUM 40 MG/VIAL IV SCH (08:46)
[2023-08-17] MEDS: AMLODIPINE 10MG TABLET PEG SCH (08:47)
[2023-08-17] MEDS: QUETIAPINE FUMARATE 50MG TABLET PO SCH ×2 (08:48→21:04)
[2023-08-17] MEDS: PAROXETINE HCL 10MG TABLET PO SCH (08:49)
[2023-08-17] MEDS: BUPROPION HCL 150MG TABLET XL 24HR PO SCH (09:02)
[2023-08-17 09:13] LABS: BASOPHILS % 0.8 % (0.0-2.0); EOSINOPHILS % 3.2 % (0.0-5.0); HEMATOCRIT. 28.9 % (36.0-48.0); HEMOGLOBIN. 9.7 g/dL (12.0-16.0); LYMPHOCYTES % 24.5 % (20.0-50.0); MEAN CORPUSCULAR HEMOGLOBIN 30.6 pg (28.0-32.0); MEAN CORPUSCULAR HGB CONC 33.7 g/dL (31.0-37.0); MEAN CORPUSCULAR VOLUME 90.6 fL (81.0-99.0); MEAN PLATELET VOLUME 7.2 fl (7.4-10.4); MONOCYTES % 7.4 % (2.0-8.0); NEUTROPHILS % 64.1 % (40.0-76.0); PLATELET 302 x1000/uL (130-400); RED BLOOD CELL COUNT 3.19 mill/uL (4.2-5.4); RED CELL DISTRIBUTION WIDTH 14.2 % (11.6-14.6)
[2023-08-17 09:27] LABS: CHLORIDE 98 mEq/L (98-107); INDEX HEMOLYSI 1 (1-3); INDEX ICTERIC 1 (1-4); INDEX LIPEMIC 1 (1-3); SODIUM 136 mEq/L (136-145)
[2023-08-17 09:38] LABS: ALANINE AMINOTRANSFERASE 29 IU/L (13-61); ALBUMIN 3.2 g/dL (3.4-5.0); ASPARTATE AMINOTRANSFERASE 14 IU/L (15-37); BILIRUBIN DIRECT 0.2 mg/dL (0.0-0.2); BILIRUBIN TOTAL 0.7 mg/dL (0.1-1.0); CALCIUM 9.6 mg/dL (8.5-10.1); CARBON DIOXIDE 32 mEq/L (21-32); CREATININE 0.4 mg/dL (0.6-1.3); GLUCOSE 149 mg/dL (70-105); PROTEIN TOTAL 8.2 g/dL (6.0-8.3); UREA NITROGEN BLOOD 15 mg/dL (7-21)
[2023-08-17] MEDS: ACETAMINOPHEN 650MG/20.3ML UDC PO PRN (16:03)
[2023-08-17] MEDS ORDERED: NALOXONE HCL 0.4MG/ML VIAL IV PRN (16:15)
[2023-08-17] MEDS: MORPHINE SULFATE 2 MG/ML CPJ (NOT FOR IM USE) IV PRN (19:53)
[2023-08-17] MEDS: LORAZEPAM 2MG/ML CPJ IV PRN (21:05)
[2023-08-18] VITALS (17 sets, daily range): BP systolic 108–142; BP diastolic 67–83; PULSE 83–101; RESP 16–27; TEMP 97.2–98.5; O2SAT 95–98
[2023-08-18] MEDS: GUAIFENESIN 200MG/10ML SUGAR FREE UDC PO SCH ×5 (00:05→23:46)
[2023-08-18] MEDS: BLOOD SUGAR DIAGNOSTIC STRIP TEST SCH ×5 (00:05→23:47)
[2023-08-18] MEDS: IPRATROPIUM/ALBUTEROL 0.5-3(2.5)MG/3ML NEB HHN SCH ×4 (01:58→21:17)
[2023-08-18] MEDS: ACETYLCYSTEINE 100MG/ML 10% VIAL 4ML INH SCH ×3 (01:59→15:31)
[2023-08-18] MEDS: MORPHINE SULFATE 2 MG/ML CPJ (NOT FOR IM USE) IV PRN ×4 (04:32→20:23)
[2023-08-18] MEDS: INSULIN LISPRO 100 UNITS/ML SUBCUT SCH ×5 (05:25→23:47)
[2023-08-18 07:34] LABS: CHLORIDE 97 mEq/L (98-107); POTASSIUM 3.7 mEq/L (3.5-5.1); SODIUM 135 mEq/L (136-145)
[2023-08-18 07:59] LABS: BASOPHILS % 0.4 % (0.0-2.0); EOSINOPHILS % 3.1 % (0.0-5.0); HEMATOCRIT. 28.1 % (36.0-48.0); HEMOGLOBIN. 9.5 g/dL (12.0-16.0); LYMPHOCYTES % 22.4 % (20.0-50.0); MEAN CORPUSCULAR VOLUME 91.2 fL (81.0-99.0); MEAN PLATELET VOLUME 7.5 fl (7.4-10.4); MONOCYTES % 7.5 % (2.0-8.0); NEUTROPHILS % 66.6 % (40.0-76.0); PLATELET 268 x1000/uL (130-400); RED BLOOD CELL COUNT 3.08 mill/uL (4.2-5.4); RED CELL DISTRIBUTION WIDTH 14.2 % (11.6-14.6); WHITE BLOOD COUNT 7.2 x1000/uL (4.5-11.0)
[2023-08-18] MEDS: BUDESONIDE 0.5MG/2ML NEB HHN SCH ×2 (08:12→21:17)
[2023-08-18] MEDS: BUPROPION HCL 150MG TABLET XL 24HR PO SCH (09:11)
[2023-08-18] MEDS: PAROXETINE HCL 10MG TABLET PO SCH (09:13)
[2023-08-18] MEDS: QUETIAPINE FUMARATE 50MG TABLET PO SCH ×2 (09:13→20:22)
[2023-08-18] MEDS: AMLODIPINE 10MG TABLET PEG SCH (09:13)
[2023-08-18] MEDS: PANTOPRAZOLE SODIUM 40 MG/VIAL IV SCH (09:14)
[2023-08-18 11:19] LABS: INDEX HEMOLYSI 1 (1-3); INDEX ICTERIC 1 (1-4); INDEX LIPEMIC 1 (1-3)
[2023-08-18 11:25] LABS: CALCIUM 9.1 mg/dL (8.5-10.1); CARBON DIOXIDE 30 mEq/L (21-32); CREATININE 0.4 mg/dL (0.6-1.3); GLUCOSE 142 mg/dL (70-105); UREA NITROGEN BLOOD 15 mg/dL (7-21)
[2023-08-19] VITALS (15 sets, daily range): BP systolic 106–135; BP diastolic 65–95; PULSE 86–100; RESP 17–25; TEMP 97.2–98; O2SAT 97–100
[2023-08-19] MEDS: MORPHINE SULFATE 2 MG/ML CPJ (NOT FOR IM USE) IV PRN ×4 (02:56→21:17)
[2023-08-19] MEDS: ACETYLCYSTEINE 100MG/ML 10% VIAL 4ML INH SCH (02:58)
[2023-08-19] MEDS: IPRATROPIUM/ALBUTEROL 0.5-3(2.5)MG/3ML NEB HHN SCH ×4 (03:00→21:24)
[2023-08-19] MEDS ORDERED: ONDANSETRON HCL 4MG/2ML INJ IV PRN (04:00)
[2023-08-19] MEDS: BLOOD SUGAR DIAGNOSTIC STRIP TEST SCH ×4 (05:47→23:32)
[2023-08-19] MEDS: GUAIFENESIN 200MG/10ML SUGAR FREE UDC PO SCH ×4 (05:47→23:32)
[2023-08-19] MEDS: INSULIN LISPRO 100 UNITS/ML SUBCUT SCH ×4 (05:47→23:32)
[2023-08-19] MEDS: BUDESONIDE 0.5MG/2ML NEB HHN SCH (08:58)
[2023-08-19] MEDS: PANTOPRAZOLE SODIUM 40 MG/VIAL IV SCH (09:01)
[2023-08-19] MEDS: AMLODIPINE 10MG TABLET PEG SCH (09:01)
[2023-08-19] MEDS: QUETIAPINE FUMARATE 50MG TABLET PO SCH ×2 (09:01→20:05)
[2023-08-19] MEDS: BUPROPION HCL 150MG TABLET XL 24HR PO SCH (09:01)
[2023-08-19] MEDS: PAROXETINE HCL 10MG TABLET PO SCH (09:01)
[2023-08-19] MEDS: LORAZEPAM 2MG/ML CPJ IV PRN (19:53)
[2023-08-20] VITALS (16 sets, daily range): BP systolic 98–135; BP diastolic 64–103; PULSE 85–95; RESP 15–24; TEMP 97–99.2; O2SAT 97–99
[2023-08-20] MEDS: IPRATROPIUM/ALBUTEROL 0.5-3(2.5)MG/3ML NEB HHN SCH ×4 (01:33→20:38)
[2023-08-20] MEDS: INSULIN LISPRO 100 UNITS/ML SUBCUT SCH ×3 (05:04→17:49)
[2023-08-20] MEDS: MORPHINE SULFATE 2 MG/ML CPJ (NOT FOR IM USE) IV PRN ×4 (05:04→20:08)
[2023-08-20] MEDS: GUAIFENESIN 200MG/10ML SUGAR FREE UDC PO SCH ×3 (05:04→17:52)
[2023-08-20] MEDS: BLOOD SUGAR DIAGNOSTIC STRIP TEST SCH ×3 (05:05→17:49)
[2023-08-20] MEDS: PANTOPRAZOLE SODIUM 40 MG/VIAL IV SCH (09:15)
[2023-08-20] MEDS: BUPROPION HCL 150MG TABLET XL 24HR PO SCH (09:15)
[2023-08-20] MEDS: PAROXETINE HCL 10MG TABLET PO SCH (09:16)
[2023-08-20] MEDS: QUETIAPINE FUMARATE 50MG TABLET PO SCH ×2 (09:16→20:09)
[2023-08-20] MEDS: AMLODIPINE 10MG TABLET PEG SCH (09:16)
[2023-08-20] MEDS: ACETYLCYSTEINE 100MG/ML 10% VIAL 4ML INH SCH (09:41)
[2023-08-20] MEDS: LORAZEPAM 2MG/ML CPJ IV PRN ×2 (12:18→18:27)
[2023-08-21] VITALS (15 sets, daily range): BP systolic 105–126; BP diastolic 60–93; PULSE 81–99; RESP 18–31; TEMP 97.9–98.8; O2SAT 96–97
[2023-08-21] MEDS: BLOOD SUGAR DIAGNOSTIC STRIP TEST SCH ×5 (00:18→23:32)
[2023-08-21] MEDS: LORAZEPAM 2MG/ML CPJ IV PRN ×4 (00:36→18:45)
[2023-08-21] MEDS: MORPHINE SULFATE 2 MG/ML CPJ (NOT FOR IM USE) IV PRN ×5 (00:36→17:51)
[2023-08-21] MEDS: IPRATROPIUM/ALBUTEROL 0.5-3(2.5)MG/3ML NEB HHN SCH ×4 (00:40→20:30)
[2023-08-21] MEDS: ACETYLCYSTEINE 100MG/ML 10% VIAL 4ML INH SCH ×3 (00:41→13:54)
[2023-08-21] MEDS: INSULIN LISPRO 100 UNITS/ML SUBCUT SCH ×4 (04:52→18:00)
[2023-08-21] MEDS: GUAIFENESIN 200MG/10ML SUGAR FREE UDC PO SCH ×5 (05:06→23:33)
[2023-08-21] MEDS: AMLODIPINE 10MG TABLET PEG SCH (09:20)
[2023-08-21] MEDS: BUPROPION HCL 150MG TABLET XL 24HR PO SCH (09:20)
[2023-08-21] MEDS: QUETIAPINE FUMARATE 50MG TABLET PO SCH (09:20)
[2023-08-21] MEDS: PANTOPRAZOLE SODIUM 40 MG/VIAL IV SCH (09:21)
[2023-08-21] MEDS: PAROXETINE HCL 10MG TABLET PO SCH (09:21)
[2023-08-21] MEDS: QUETIAPINE FUMARATE 200MG TABLET PEG SCH (20:24)
[2023-08-21] MEDS: HYDROCODONE/ACETAMINOPHEN 5/325MG TABLET PEG PRN (23:33)
[2023-08-21] MEDS: LORAZEPAM 1MG TABLET PEG PRN (23:33)
[2023-08-22] VITALS (13 sets, daily range): BP systolic 97–129; BP diastolic 54–82; PULSE 81–94; RESP 20–28; TEMP 97.8–98.8; O2SAT 96
[2023-08-22] MEDS: IPRATROPIUM/ALBUTEROL 0.5-3(2.5)MG/3ML NEB HHN PRN ×2 (01:08→07:56)
[2023-08-22] MEDS: ACETYLCYSTEINE 100MG/ML 10% VIAL 4ML INH SCH ×2 (01:08→07:56)
[2023-08-22] MEDS: INSULIN LISPRO 100 UNITS/ML SUBCUT SCH ×4 (05:24→17:58)
[2023-08-22] MEDS: BLOOD SUGAR DIAGNOSTIC STRIP TEST SCH ×4 (05:24→23:45)
[2023-08-22] MEDS: GUAIFENESIN 200MG/10ML SUGAR FREE UDC PO SCH ×4 (05:25→23:45)
[2023-08-22] MEDS: HYDROCODONE/ACETAMINOPHEN 5/325MG TABLET PEG PRN ×4 (05:25→23:45)
[2023-08-22] MEDS: BUPROPION HCL 150MG TABLET XL 24HR PO SCH (08:41)
[2023-08-22] MEDS: QUETIAPINE FUMARATE 200MG TABLET PEG SCH ×2 (08:41→20:58)
[2023-08-22] MEDS: PAROXETINE HCL 10MG TABLET PO SCH (08:41)
[2023-08-22] MEDS: AMLODIPINE 10MG TABLET PEG SCH (08:41)
[2023-08-22] MEDS: ENOXAPARIN 30MG/0.3ML SYR SUBCUT SCH ×2 (08:42→20:59)
[2023-08-22] MEDS: ACETAMINOPHEN 650MG/20.3ML UDC PO PRN (08:42)
[2023-08-22] MEDS: PANTOPRAZOLE SODIUM 40 MG/VIAL IV SCH (08:43)
[2023-08-22 12:54] LABS: BASOPHILS % 0.3 % (0.0-2.0); EOSINOPHILS % 5.8 % (0.0-5.0); HEMATOCRIT. 25.9 % (36.0-48.0); HEMOGLOBIN. 8.5 g/dL (12.0-16.0); LYMPHOCYTES % 27.4 % (20.0-50.0); MEAN CORPUSCULAR HEMOGLOBIN 29.7 pg (28.0-32.0); MEAN CORPUSCULAR VOLUME 90.1 fL (81.0-99.0); MEAN PLATELET VOLUME 7.5 fl (7.4-10.4); MONOCYTES % 7.7 % (2.0-8.0); NEUTROPHILS % 58.8 % (40.0-76.0); PLATELET 264 x1000/uL (130-400); RED BLOOD CELL COUNT 2.87 mill/uL (4.2-5.4); RED CELL DISTRIBUTION WIDTH 14.3 % (11.6-14.6); WHITE BLOOD COUNT 7.2 x1000/uL (4.5-11.0)
[2023-08-22 13:10] LABS: CHLORIDE 96 mEq/L (98-107); INDEX HEMOLYSI 1 (1-3); INDEX ICTERIC 1 (1-4); INDEX LIPEMIC 1 (1-3); POTASSIUM 3.6 mEq/L (3.5-5.1); SODIUM 134 mEq/L (136-145)
[2023-08-22 13:16] LABS: CALCIUM 8.8 mg/dL (8.5-10.1); CARBON DIOXIDE 34 mEq/L (21-32); CREATININE 0.4 mg/dL (0.6-1.3); GLUCOSE 101 mg/dL (70-105); UREA NITROGEN BLOOD 15 mg/dL (7-21)
[2023-08-22 14:37] LABS: BG BASE EXCESS 8.2 mmol/L (-2.0-2.0); BG CARBOXYHEMOGLOBIN 0.6 % (0.5-1.5); BG DEOXYHEMOGLOBIN 1.9 % (0.0-5.0); BG FRACTION INSPIRED OXYGEN 35; BG HCO3 ACT 33.7 mmol/L (22.0-26.0); BG METHEMOGLOBIN 0.1 % (0.0-1.5); BG OXYGEN SATURATION 98.1 % (92.0-98.5); BG OXYHEMOGLOBIN 97.4 % (94.0-97.0); BG PCO2 52.4 mmHg (35.0-45.0); BG PH 7.426 (7.350-7.450); BG PO2 109.9 mmHg (75.0-100.0); BG SAMPLE SITE LEFT RADIAL; BG TOTAL HEMOGLOBIN 9.1 g/dL (12.0-18.0); BG VENT MODE COOL AEROSOL
[2023-08-22] MEDS: LORAZEPAM 1MG TABLET PEG PRN (15:44)
[2023-08-23] VITALS (10 sets, daily range): BP systolic 92–137; BP diastolic 54–94; PULSE 83–101; RESP 12–30; TEMP 98–98.9
[2023-08-23] MEDS: IPRATROPIUM/ALBUTEROL 0.5-3(2.5)MG/3ML NEB HHN PRN (00:06)
[2023-08-23] MEDS: GUAIFENESIN 200MG/10ML SUGAR FREE UDC PO SCH ×3 (05:00→18:20)
[2023-08-23] MEDS: HYDROCODONE/ACETAMINOPHEN 5/325MG TABLET PEG PRN ×4 (05:01→20:11)
[2023-08-23] MEDS: INSULIN LISPRO 100 UNITS/ML SUBCUT SCH ×3 (05:02→12:00)
[2023-08-23] MEDS: BLOOD SUGAR DIAGNOSTIC STRIP TEST SCH ×2 (05:02→12:43)
[2023-08-23 07:51] LABS: BASOPHILS % 0.4 % (0.0-2.0); EOSINOPHILS % 6.1 % (0.0-5.0); HEMATOCRIT. 24.9 % (36.0-48.0); HEMOGLOBIN. 8.4 g/dL (12.0-16.0); MEAN CORPUSCULAR HEMOGLOBIN 30.4 pg (28.0-32.0); MEAN CORPUSCULAR HGB CONC 33.7 g/dL (31.0-37.0); MEAN CORPUSCULAR VOLUME 90.1 fL (81.0-99.0); MEAN PLATELET VOLUME 7.7 fl (7.4-10.4); MONOCYTES % 7.9 % (2.0-8.0); NEUTROPHILS % 64.6 % (40.0-76.0); PLATELET 259 x1000/uL (130-400); RED BLOOD CELL COUNT 2.76 mill/uL (4.2-5.4); RED CELL DISTRIBUTION WIDTH 14.4 % (11.6-14.6); WHITE BLOOD COUNT 7.2 x1000/uL (4.5-11.0)
[2023-08-23] MEDS: BUPROPION HCL 150MG TABLET XL 24HR PO SCH (08:37)
[2023-08-23] MEDS: PANTOPRAZOLE SODIUM 40 MG/VIAL IV SCH (08:37)
[2023-08-23] MEDS: ENOXAPARIN 30MG/0.3ML SYR SUBCUT SCH ×2 (08:37→20:10)
[2023-08-23] MEDS: QUETIAPINE FUMARATE 200MG TABLET PEG SCH ×2 (08:38→20:10)
[2023-08-23] MEDS: AMLODIPINE 10MG TABLET PEG SCH (08:38)
[2023-08-23] MEDS: PAROXETINE HCL 10MG TABLET PO SCH (08:38)
[2023-08-23 09:01] LABS: CHLORIDE 97 mEq/L (98-107); INDEX HEMOLYSI 1 (1-3); INDEX ICTERIC 1 (1-4); INDEX LIPEMIC 1 (1-3); POTASSIUM 3.4 mEq/L (3.5-5.1); SODIUM 135 mEq/L (136-145)
[2023-08-23 09:12] LABS: CARBON DIOXIDE 34 mEq/L (21-32); CREATININE 0.4 mg/dL (0.6-1.3); GLUCOSE 111 mg/dL (70-105); NT PRO B-TYPE NATRIURETIC PEP 236 pg/mL (5-125); UREA NITROGEN BLOOD 12 mg/dL (7-21)
[2023-08-23] MEDS ORDERED: FUROSEMIDE 20MG/2ML VIAL IVP NR (12:45)
[2023-08-23] MEDS ORDERED: POTASSIUM CHLORIDE 20MEQ/PACKET PO NR (12:45)
== END 2023-08-23 23:14 | DRG 4 ==
LOC: ER 23:20 → EDBEDREQ 07-21 10:37 → ENRESERV 07-21 11:10 → MICUSO 07-21 17:22 → 5EST 08-03 04:35
PROVIDERS: ADMIT Internal Medicine; ATTEND Internal Medicine
PROC: 0DTJ0ZZ Resection of Appendix, Open Approach (ICD-10-PCS; principal; 2023-07-21)
PROC: 0BH17EZ Insertion of Endotracheal Airway into Trachea, Via Natural or Artificial Opening (ICD-10-PCS; 2023-07-21)
PROC: 5A1955Z Respiratory Ventilation, Greater than 96 Consecutive Hours (ICD-10-PCS; 2023-07-21)
PROC: 0DQ80ZZ Repair Small Intestine, Open Approach (ICD-10-PCS; 2023-07-21)
PROC: 02HV33Z Insertion of Infusion Device into Superior Vena Cava, Percutaneous Approach (ICD-10-PCS; 2023-07-22)
PROC: B548ZZA Ultrasonography of Superior Vena Cava, Guidance (ICD-10-PCS; 2023-07-22)
PROC: 30233N1 Transfusion of Nonautologous Red Blood Cells into Peripheral Vein, Percutaneous Approach (ICD-10-PCS; 2023-07-28)
PROC: 05HY33Z Insertion of Infusion Device into Upper Vein, Percutaneous Approach (ICD-10-PCS; 2023-07-31)
PROC: B54MZZA Ultrasonography of Right Upper Extremity Veins, Guidance (ICD-10-PCS; 2023-07-31)
PROC: 0B113F4 Bypass Trachea to Cutaneous with Tracheostomy Device, Percutaneous Approach (ICD-10-PCS; 2023-08-01)
PROC: 0GB Endocrine System, Excision (ICD-10-PCS; 2023-08-01)
PROC: 0DB78ZX Excision of Stomach, Pylorus, Via Natural or Artificial Opening Endoscopic, Diagnostic (ICD-10-PCS; 2023-08-03)
PROC: 0DH63UZ Insertion of Feeding Device into Stomach, Percutaneous Approach (ICD-10-PCS; 2023-08-03)
PROC: 02HV33Z Insertion of Infusion Device into Superior Vena Cava, Percutaneous Approach (ICD-10-PCS; 2023-08-03)
PROC: B548ZZA Ultrasonography of Superior Vena Cava, Guidance (ICD-10-PCS; 2023-08-03)
DX: A41.9 Sepsis, unspecified organism (principal); R65.21 Severe sepsis with septic shock; K35.33 Acute appendicitis with perforation, localized peritonitis, and gangrene, with abscess; J18.9 Pneumonia, unspecified organism; E44.0 Moderate protein-calorie malnutrition; E87.29 Other acidosis; J81.1 Chronic pulmonary edema; N17.9 Acute kidney failure, unspecified; E87.1 Hypo-osmolality and hyponatremia; E83.51 Hypocalcemia; J96.01 Acute respiratory failure with hypoxia; J96.02 Acute respiratory failure with hypercapnia; K56.7 Ileus, unspecified; J98.11 Atelectasis; E66.01 Morbid (severe) obesity due to excess calories; E78.00 Pure hypercholesterolemia, unspecified; G47.33 Obstructive sleep apnea (adult) (pediatric); D64.9 Anemia, unspecified; K76.9 Liver disease, unspecified; Z20.822 Contact with and (suspected) exposure to COVID-19; E87.6 Hypokalemia; J44.0 Chronic obstructive pulmonary disease with (acute) lower respiratory infection; R13.10 Dysphagia, unspecified; K29.70 Gastritis, unspecified, without bleeding; B19.20 Unspecified viral hepatitis C without hepatic coma; F17.200 Nicotine dependence, unspecified, uncomplicated; K38.1 Appendicular concretions; Z93.1 Gastrostomy status; Z78.1 Physical restraint status; Z68.35 Body mass index [BMI] 35.0-35.9, adult; Z79.899 Other long term (current) drug therapy; Z99.11 Dependence on respirator [ventilator] status
CPT/HCPCS: 31500; 36415; 36573; 36600; 71045; 71250; 74018; 74176; 80048; 80053; 80076; 80305; 81003; 82040; 82375; 82465; 82607; 82728; 82746; 82805; 82962; 83540; 83550; 83605; 83735; 83880; 84100; 84134; 84145; 84478; 84484; 84703; 85014; 85018; 85025; 85044; 85049; 85384; 86705; 86709; 86803; 86850; 86900; 86920; 87070; 87077; 87186; 87340; 87426; 88305; 88312; 88313; 93005; 93306; 94002; 94003; 94640; 94667; 97110; 97116; 97163; 97164; 97530; 99285; A4216; C1725; C9113; C9803; J0360; J0690; J1100; J1170; J1200; J1630; J1650; J1815; J1940; J2060; J2250; J2270; J2405; J2543; J2704; J2765; J2920; J3010; J3480; J3490; J7030; J7050; J7060; J7608; J7626; P9016; P9041; Q9957; Q9963; A4315